=== PATIENT | female | born 1955 | race Caucasian/White ===

== ENCOUNTER → 2019-12-20 09:24 | Outpatient (CLI) | payer OTHER, SELFPAY ==
--- NOTE | ~2019-12-20 | MR_ITS ---
EXAMINATION: MR shoulder RT wo con DATE: 12/20/2019 10:34 INDICATION: Right shoulder pain. TECHNIQUE: Magnetic resonance imaging (MRI) of the right shoulder was performed without intravenous c ontrast. Sequences included axial PD-weighted FS FSE, coronal oblique PD-weighted FS FSE, coronal obl ique T2-weighted FS FSE, sagittal PD-weighted FS FSE, and sagittal T1-weighted SE. COMPARISON: None. FINDINGS: Coracoacromial arch: The acromion undersurface is curved in morphology (type II). Tiny subacromial spur at the acromial in sertion of the normal coracoacromial ligament. Mild acromioclavicular osteoarthritis. Rotator cuff: Mild supraspinatus and moderate infraspinatus tendinopathy. Small partial-thickness intrasubstance te ar at the superior facet footplate of the supraspinatus tendon which measures approximately 6 mm AP a nd involves <1/2 of the tendon thickness. The teres minor tendon is normal. Mild subscapularis tendin opathy without discrete tear. Normal rotator cuff muscle bulk and signal. Biceps tendon, glenoid labrum and glenohumeral cartilage: Long head of the biceps tendon is normal. There is a tear of the superior glenoid labrum. Partial-thi ckness tear without detachment of the biceps labral anchor as well as extending into the superior gle nohumeral ligament. Partial-thickness chondral ulceration and fissuring along the cephalad aspect of the glenoid and along the superior the superomedial aspect of the humeral head. There are tiny margin al osteophytes along the inferior humeral head and glenoid. Fluid: Small glenohumeral joint effusion with partial extension of a small amount of fluid into the long hea d biceps tendon sheath. No loose osteochondral bodies. Increased fluid signal in the subacromial/subd eltoid bursa consistent with minimal bursitis. Bones: There is cystic change and prominent marrow edema at the greater tuberosity likely related to rotator cuff disease. No fracture or pathologic marrow replacing process. IMPRESSION: 1. Mild to moderate rotator cuff tendinopathy with small mild partial-thickness intrasubstance tear a t the superior facet footplate of the supraspinatus tendon. 2. Tear at the superior glenoid labrum which extends to involve but not detached the biceps labral co mplex and superior glenohumeral ligament. 3. Mild glenohumeral and acromioclavicular osteoarthritis. Reviewed, dictated and finalized at location A. IMPRESSION: 1. Mild to moderate rotator cuff tendinopathy with small mild partial-thickness intrasubstance tear at the superior facet footplate of the supraspinatus tendo n. 2. Tear at the superior glenoid labrum which extends to involve but not detache d the biceps labral complex and superior glenohumeral ligament. 3. Mild glenohumeral and acromioclavicular osteoarthritis.
== END ==
PROVIDERS: PCP Family Medicine; Visit Provider Nurse Practitioner Family
DX: M19.011 Primary osteoarthritis, right shoulder (principal); S43.431A Superior glenoid labrum lesion of right shoulder, initial encounter; X58.XXXA Exposure to other specified factors, initial encounter
CPT/HCPCS: 73221

== ENCOUNTER → 2022-06-01 13:21 | Outpatient (CLI) | payer OTHER, SELFPAY ==
--- NOTE | ~2022-06-01 | CT_ITS ---
EXAMINATION: CT chest high resolution wo nc DATE: 06/01/2022 13:43 INDICATION: RA, chronic cough, shortness of breath TECHNIQUE: Computed tomography (CT) of the chest was performed without intravenous contrast. Addition al 3D reconstructions utilizing coronal maximum intensity projection (MIP) were performed. Automated exposure control and iterative reconstruction technique were employed. The dose-length product was 24 5.75 mGy-cm. COMPARISON: 04/16/2019 FINDINGS: Lungs are clear with no pulmonary nodules, pneumonia or other pulmonary infiltrates. No evident pulmo nary edema or other interstitial lung disease. No pleural effusion or pneumothorax. Heart size is nor mal. Atherosclerotic coronary artery calcifications. No pericardial effusion. Thoracic aorta is danelle l in caliber. No pathologically enlarged thoracic lymphadenopathy. And visualized upper abdomen is un remarkable. Mild thoracic dextrocurvature. Moderate thoracic and severe upper lumbar and lower cervic al spondylosis. IMPRESSION: 1. Atherosclerotic coronary artery calcifications. No other evident acute or chronic cardiopulmonary disease. Reviewed, dictated and finalized at location A. ICAL PROCESSING TECHNICIAN IMPRESSION: 1. Atherosclerotic coronary artery calcifications. No other evident acute or ch ronic cardiopulmonary disease.
== END ==
PROVIDERS: PCP Nurse Practitioner Family; Visit Provider Internal Medicine Critical Care Medicine
DX: R05.3 Chronic cough (principal); I25.10 Atherosclerotic heart disease of native coronary artery without angina pectoris
CPT/HCPCS: 71250

== ENCOUNTER 2022-06-06 07:09 | Outpatient (CLI) | payer OTHER, SELFPAY ==
--- NOTE | 2022-06-06 13:35 | WPDPFTINT ---
PFT Procedure Performed PFT Procedure Performed Spirometry with Pre/Post Bronchodilator Plethysmography (Lung Vol) Diffusing Cap (DLCO) Flow Vol Loop PFT Interpretation Lung volumes were measured with the body plethysmography method. Lung volumes are unremarkable. Spirometry showed normal expiratory flow rates and a normal FEV1 to FVC ratio 77%. Following administration of a bronchodilator there was no significant increase in expiratory flow rates. Lung diffusion capacity is within the normal range at 84% predicted. The flow-volume loop is unremarkable. Impression: Spirometry, lung volumes, and lung diffusion capacity within the normal range.
== END 2022-06-06 07:10 | disposition home or self-care (01) ==
LOC: ANHPFT 07:11
PROVIDERS: PCP Nurse Practitioner Family; Visit Provider Internal Medicine Critical Care Medicine
DX: R05.3 Chronic cough (principal)
CPT/HCPCS: 94060; 94726; 94729

== ENCOUNTER → 2022-09-21 10:07 | Outpatient (CLI) | payer OTHER, SELFPAY ==
--- NOTE | ~2022-09-21 | DEXA_ITS ---
Bone Density Report Name: SARAHI KHANNA Age: 66 Sex: Female Ethnicity: White Date of : 1955 Indication: postmenopausal; screening for osteoporosis; asthma or emphysema; hysterectomy; rheumatoid arthritis; Referring Provider: Marie Hackett Study: Bone densitometry was performed. Exam Date: September 21, 2022 Accession number: [id number] Bone Density: Region BMD T-score Z-score Classification AP Spine (L1, L2) 1.090 1.0 2.7 Normal Femoral Neck (Left) 0.726 -1.1 0.4 Osteopenia Total Hip (Left) 0.888 -0.4 0.8 Normal Femoral Neck (Right) 0.734 -1.0 0.5 Normal Total Hip (Right) 0.898 -0.4 0.9 Normal Total Hip Mean 0.893 -0.4 0.9 Normal World Health Organization criteria for BMD impression classify patients as: Normal (T-score at or above -1.0), Osteopenia (T-score between -1.0 and -2.5), or Osteoporosis (T-score at or below -2.5). 10-year Fracture Risk(1): Major Osteoporotic Fracture 11% Hip Fracture 0.9% Reported Risk Factors: [place] (), Neck BMD=0.726, BMI=25.6, rheumatoid arthritis (1) FRAX(R) Version 3.08. Fracture probability calculated for an untreated patient. Fracture probability may be lower if the patient has received treatment. Clinical Information Provided by Patient: Has rheumatoid arthritis Has the following medical conditions: Asthma or Emphysema, Hysterectomy Patient maximum height was 63.5 Menopause Age: 42 No regular weight bearing exercise Drinks caffeinated beverages Onset of menses at age 15 Number of children 1 Impression: The patient has low bone mass, based on the Left Femoral Neck T-score. The patient has an estimated ten-year risk of hip fracture of 0.9% and an estimated ten-year risk of major fracture of 11%, based on the WHO FRAX algorithm. Discussion: BONE DENSITY IS LOW AT ONE OR MORE SKELETAL SITES. This patient's lowest T-score is low at one or more skeletal sites. It meets the World Health Organization's (WHO) criteria for ?low bone mass? (T-score between -1.0 and -2.5). The patient's 10-year risk of fracture as calculated by FRAX is less than the threshold where pharmacological therapy is recommended by the National Osteoporosis Foundation (NOF). However, all treatment decisions require clinical judgment and consideration of individual patient factors, including patient preferences, comorbidities, previous drug use, risk factors not captured in the FRAX model (e.g., frailty, falls, vitamin D deficiency, increased bone turnover, interval significant decline in bone density) and possible under or overestimation of fracture risk by FRAX. The patient should follow a healthful lifestyle (good nutrition with adequate calcium and vitamin D, and appropriate weight-bearing exercise). Follow-Up: Consider repeating this study in 2 to 3 years to reassess t
--- NOTE | ~2022-09-21 | MM_ITS ---
EXAMINATION: MM screening jessica BI w alyssa HISTORY: Screening mammogram TECHNIQUE: Craniocaudal and mediolateral oblique 3-D tomosynthesis images were obtained and synthetic 2-D images were generated. CAD analysis was submitted and interpreted. COMPARISON: No prior mammogram is available for comparison at this institution. BREAST PARENCHYMAL COMPOSITION: The breasts are heterogeneously dense, which may obscure small masses . FINDINGS: RIGHT BREAST: No suspicious mass, calcification, or architectural distortion are identified to sugges t malignancy. LEFT BREAST: There is focal asymmetry in the middle third of the upper breast. IMPRESSION: 1. Left breast focal asymmetry. 2. Additional mammographic views and possible breast ultrasound are recommended. BI-RADS Category 0: Incomplete: Needs additional imaging evaluation. Reviewed, dictated and finalized at location A. IMPRESSION: 1. Left breast focal asymmetry. 2. Additional mammographic views and possible breast ultrasound are recommended . BI-RADS Category 0: Incomplete: Needs additional imaging evaluation.
== END ==
PROVIDERS: PCP Family Medicine; Visit Provider Nurse Practitioner Family
DX: Z12.31 Encounter for screening mammogram for malignant neoplasm of breast (principal); Z78.0 Asymptomatic menopausal state; R92.8 Other abnormal and inconclusive findings on diagnostic imaging of breast; M85.852 Other specified disorders of bone density and structure, left thigh
CPT/HCPCS: 77063; 77067; 77080

== ENCOUNTER → 2022-10-14 13:35 | Outpatient (CLI) | payer OTHER, SELFPAY ==
--- NOTE | ~2022-10-14 | MMUS_ITS ---
EXAMINATION: MM diagnostic jessica LT w alyssa, US breast LT complete HISTORY: Focal asymmetry is reported in middle third of upper left breast on 09/17/2022 screening mamm ogram TECHNIQUE: Additional 3-D Tomosynthesis images of the left breast were performed and synthetic 2-D im ages were generated. CAD analysis was submitted and interpreted. High resolution complete left breast ultrasound examination including all 4 quadrants and subareolar area was performed. COMPARISON: 09/18/2019 bilateral screening mammogram FINDINGS: MAMMOGRAPHIC FINDINGS: There is asymmetric multinodular prominence of the fibroglandular stroma in the upper left breast wit h occasional benign appearing calcifications. One or more masses is suspected but obscured by the fib roglandular stroma, limiting assessment. Complete left breast ultrasound examination was performed. ULTRASOUND: 12-1:00 4 cm from nipple: There is a focal ill-defined approximately 3 x 5 x 5.6 mm area of hypoechog enicity with posterior shadowing. Ultrasound-guided biopsy is recommended 12-1:00 4 cm from nipple: There is approximately 3 x 3.8 mm hypoechoic lesion without internal vascul arity or posterior shadowing. 2:00 6 cm from nipple: There is an irregular area of diminished echogenicity with posterior shadowing , measuring up to approximately 1.7 x 2.3 cm. Differential diagnosis includes scarring from reported prior biopsy versus malignancy. Consider ultrasound-guided biopsy. 3:00 4 cm from nipple: Circumscribed approximately 2.5 mm hypoechoic lesion without internal vascular ity or posterior shadowing, likely benign IMPRESSION: 1. There are 2 ill-defined areas of diminished echogenicity with posterior shadowing, at 12-1:00 4 cm from the nipple and 2:00 6 cm from nipple 2. Consider ultrasound-guided biopsy of the left breast 12:00-1:00 4 cm from nipple and 2:00 6 cm fro m nipple areas of hypoechogenicity BI-RADS category 4, suspicious findings. Dr. Silva telephoned the report and ultrasound-guided biopsy recommendations on 10/14/2022 at 1620 hour s to [facility] voicemail. Reviewed, dictated and finalized at location A. E IMPRESSION: 1. There are 2 ill-defined areas of diminished echogenicity with posterior shad owing, at 12-1:00 4 cm from the nipple and 2:00 6 cm from nipple 2. Consider ultrasound-guided biopsy of the left breast 12:00-1:00 4 cm from ni pple and 2:00 6 cm from nipple areas of hypoechogenicity BI-RADS category 4, suspicious findings. Dr. Silva telephoned the report and ultrasound-guided biopsy recommendations on 10/14/2022 at 1620 hours to [facility] voicemail.
== END ==
PROVIDERS: PCP Family Medicine; Visit Provider Family Medicine
DX: R92.8 Other abnormal and inconclusive findings on diagnostic imaging of breast (principal)
CPT/HCPCS: 76641; 77061; 77065; G0279

== ENCOUNTER 2022-10-25 15:51 | Outpatient (CLI) | payer OTHER, SELFPAY ==
[2022-10-25 18:49] LABS: Alanine Aminotransferase 23 U/L (6-35); Albumin Level 4.2 g/dL (3.5-5.1); Alkaline Phosphatase 104 U/L (38-126); Anion Gap 6 mmol/L (8-16); Aspartate Amino Transferase 42 U/L (14-36); Bilirubin,Total 0.3 mg/dL (0.2-1.3); Blood Urea Nitrogen 18 mg/dL (7-17); Calcium 8.8 mg/dL (8.4-10.2); Carbon Dioxide 30 mmol/L (22-30); Chloride 100 mmol/L (98-107); Estimated Glomerular Filt Rate > 60; Glucose 87 mg/dL (65-110); Potassium 3.8 mmol/L (3.4-5.0); Sodium 136 mmol/L (137-145)
== END 2022-10-25 15:52 | disposition home or self-care (01) ==
LOC: ANHGOSHLAB 15:53
PROVIDERS: PCP Family Medicine; Visit Provider Family Medicine
DX: F32.9 Major depressive disorder, single episode, unspecified (principal); E78.5 Hyperlipidemia, unspecified
CPT/HCPCS: 36415; 80053

== ENCOUNTER 2022-11-03 08:38 | Outpatient (CLI) | payer OTHER, SELFPAY ==
--- NOTE | ~2022-11-03 | US_ITS ---
EXAMINATION: Consultation US INDICATION: Patient presents for left breast biopsy TECHNIQUE: Limited left breast ultrasound is performed. COMPARISON: 10/14/2022 FINDINGS: No specific ultrasound targeted is identified for biopsy. This was discussed with the ale de la cruz and a six-month follow-up was agreed upon. IMPRESSION: 1. No specific sonographic target identified for biopsy. Recommend follow-up left diagnostic mammogra m in six months with possible ultrasound. Reviewed, dictated and finalized at location A. IMPRESSION: 1. No specific sonographic target identified for biopsy. Recommend follow-up le ft diagnostic mammogram in six months with possible ultrasound.
== END 2022-11-03 08:39 | disposition home or self-care (01) ==
PROVIDERS: PCP Family Medicine; Visit Provider Family Medicine
DX: N63.20 Unspecified lump in the left breast, unspecified quadrant (principal)
CPT/HCPCS: 99199

== ENCOUNTER 2023-04-27 10:08 | Outpatient (CLI) | payer OTHER, SELFPAY ==
[2023-04-27 19:15] LABS: Basophils Absolute Auto 0.1 K/mm3 (0.0-0.1); Basophils Percent Auto 0.7 % (0.2-1.2); Eosinophils Absolute Auto 0.2 K/mm3 (0-0.3); Eosinophils Percent Auto 2.3 % (0-4.4); Hematocrit 39.8 % (37.0-47.0); Hemoglobin 12.4 g/dL (12.0-15.0); Immature Granulocyte Absolute 0.04 K/mm3 (0.00-0.031); Immature Granulocyte Percent A 0.6 % (0-0.5); Lymphocytes Percent Auto 24.8 % (18.3-44.2); Mean Corpuscular HGB Conc 31.2 g/dl (32-36); Mean Corpuscular Hemoglobin 28.7 pg (26-34); Mean Corpuscular Volume 92.1 fl (80-100); Mean Platelet Volume 9.9 fl (7.4-10.4); Monocytes Absolute Auto 0.5 K/mm3 (0.1-0.6); Monocytes Percent Auto 7.2 % (2.6-8.5); Neutrophils Absolute Auto 4.4 K/mm3 (1.3-6.7); Neutrophils Percent Auto 64.4 % (45.5-73.1); Platelet Count Result 289 k/mm3 (150-375); Red Blood Count 4.32 M/mm3 (4.2-5.4); Red Cell Distribution Width 13.1 % (11.5-14.5); White Blood Count 6.9 K/mm3 (4.5-10.0)
[2023-04-27 19:29] LABS: LDL Cholesterol Direct 110 mg/dL
[2023-04-27 19:38] LABS: Vitamin D 25 Hydroxy 37.3 ng/mL
[2023-04-27 19:42] LABS: Alanine Aminotransferase 22 U/L (6-35); Albumin Level 4.1 g/dL (3.5-5.1); Alkaline Phosphatase 97 U/L (38-126); Anion Gap 8 mmol/L (8-16); Aspartate Amino Transferase 49 U/L (14-36); Bilirubin,Total 0.6 mg/dL (0.2-1.3); Blood Urea Nitrogen 17 mg/dL (7-17); Calcium 9.2 mg/dL (8.4-10.2); Carbon Dioxide 26 mmol/L (22-30); Chloride 102 mmol/L (98-107); Cholesterol 225 mg/dL (0-200); Estimated Glomerular Filt Rate > 60; Glucose 87 mg/dL (65-110); HDL Direct 68 mg/dL; Potassium 4.2 mmol/L (3.4-5.0); Sodium 136 mmol/L (137-145); Triglycerides 77 mg/dL (<150)
== END 2023-04-27 10:09 | disposition home or self-care (01) ==
PROVIDERS: PCP Family Medicine; Visit Provider Family Medicine
DX: F32.9 Major depressive disorder, single episode, unspecified (principal); F41.9 Anxiety disorder, unspecified; E53.8 Deficiency of other specified B group vitamins; Z00.00 Encounter for general adult medical examination without abnormal findings; E55.9 Vitamin D deficiency, unspecified; Z79.899 Other long term (current) drug therapy; E78.5 Hyperlipidemia, unspecified
CPT/HCPCS: 36415; 80053; 80061; 82306; 82607; 84443; 85025

== ENCOUNTER 2023-07-21 12:33 | Outpatient (CLI) | payer OTHER, SELFPAY ==
--- NOTE | ~2023-07-21 | XR_ITS ---
XR cervical spine 4-5V DATE: 07/21/2023 13:03 INDICATION: Neck pain. Low back pain. TECHNIQUE: AP, lateral, lateral, bilateral oblique views COMPARISON: None FINDINGS: C1 and C2 are normally aligned and the odontoid process is intact. There is mild levoscolio sis of the cervical spine. No fracture or dislocation or locked facet or prevertebral soft tissue swelling is detected. There is moderately severe degenerative disease at C3-4 with minimal retrolisthesis. Mild degenerative disc disease at C4-5. Minimal anterolisthesis at C4-5. Moderately severe degenerative disc disease and posterior spurring at C5-6. Moderate degenerative disease at C6-7 with posterior spurring. Uncovertebral joint spurring at C5-C6 and C7 encroaches upon the anterior aspect of the C6 and C7 felipe ral foramina bilaterally. IMPRESSION: Moderately severe cervical spondylosis Reviewed, dictated and finalized at location B.
--- NOTE | ~2023-07-21 | XR_ITS ---
Left Knee Technique: AP and lateral views were obtained. Clinical History: Pain Findings: No fracture or dislocation is seen. Osseous alignment is anatomic. Joint spaces are preserv ed without degenerative or erosive change. Soft tissues are unremarkable. No joint effusion is seen. Impression: Unremarkable left knee radiographs. Reviewed, dictated and finalized at location . Impression: Unremarkable left knee radiographs.
--- NOTE | ~2023-07-21 | XR_ITS ---
AP and lateral views of the bilateral hips Clinical history: Pain Findings: No acute fracture or dislocation is seen. Osseous alignment is anatomic. Bilateral hip and SI joint spaces are preserved. Soft tissues are unremarkable. Impression: No significant abnormality is seen. Reviewed, dictated and finalized at location . Impression: No significant abnormality is seen.
--- NOTE | ~2023-07-21 | XR_ITS ---
XR lumbar spine min 4V DATE: 07/21/2023 13:03 INDICATION: Low back pain TECHNIQUE: AP, lateral , bilateral oblique views, coned lateral lumbosacral view COMPARISON: 11/10/2018 MRI lumbar spine 06/18/2013 lumbar spine FINDINGS: Status post posterior and interbody surgical spinal fusion at L4-S1. There is minimal lumbar levoscoliosis. There is diffuse osteopenia. There is severe degenerative disc disease at L1-2 and L2-3, with associated mild L1-2 retrolisthesis. The sacroiliac joints are intact. IMPRESSION: Status post posterior and interbody surgical spinal fusion at L4-5 Osteopenia Severe degenerative disc disease at L1-2 and L2=3 Reviewed, dictated and finalized at location B.
--- NOTE | ~2023-07-21 | XR_ITS ---
Right Knee Technique: AP and lateral views were obtained. Clinical History: Pain Findings: No fracture or dislocation is seen. Osseous alignment is anatomic. Joint spaces are preserv ed without degenerative or erosive change. Soft tissues are unremarkable. No joint effusion is seen. Impression: Unremarkable right knee radiographs. Reviewed, dictated and finalized at location . Impression: Unremarkable right knee radiographs.
== END 2023-07-21 12:34 ==
LOC: MICIMG 12:35
PROVIDERS: PCP Family Medicine; Visit Provider Internal Medicine Rheumatology
DX: M54.2 Cervicalgia (principal); M51.36 Other intervertebral disc degeneration, lumbar region; M85.88 Other specified disorders of bone density and structure, other site; Z98.1 Arthrodesis status; M47.892 Other spondylosis, cervical region
CPT/HCPCS: 72050; 72110; 73521; 73560

== ENCOUNTER 2023-08-03 08:26 | Outpatient (CLI) | payer OTHER, SELFPAY ==
--- NOTE | ~2023-08-03 | MR_ITS ---
MRI of the right hip Clinical history: Pain Technique: Coronal T1-weighted, T2-weighted, and proton-density fat-sat images, and axial T1-weighted and proton-density fat-sat images were acquired through the pelvis. Coronal T2-weighted images and c oronal, axial, and sagittal proton-density fat-sat images were acquired through the right hip. Findings: There is no fracture or avascular necrosis of either hip. Bone marrow signals the proximal femora and pelvic bones are unremarkable. Bilateral hip joint spaces are preserved, with probable mil d to moderate diffuse chondromalacia the right hip joint. No significant joint effusion seen. No defi nite right acetabular labral tear identified. Visualized musculature about the pelvis and right hip is unremarkable. No muscle atrophy or edema see n. Visualized tendons are intact. No soft tissue mass or fluid collection. 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 Reviewed, dictated and finalized at location .
== END 2023-08-03 08:27 ==
PROVIDERS: PCP Nurse Practitioner Family; Visit Provider Nurse Practitioner
DX: M25.551 Pain in right hip (principal)
CPT/HCPCS: 73721

== ENCOUNTER 2023-09-29 07:04 | Outpatient (CLI) | payer OTHER, SELFPAY ==
--- NOTE | ~2023-09-29 | MR_ITS ---
EXAMINATION: MR lower leg RT wo con DATE: 09/29/2023 08:16 INDICATION: Right lower leg pain. TECHNIQUE: Magnetic resonance imaging (MRI) of the right lower leg was performed without intravenous contrast. COMPARISON: Right knee radiographs 07/21/2023 FINDINGS: Bone alignment is normal. No fracture. There is periosteal edema of anterior aspect of tibi al diaphysis. No marrow or cortical signal abnormality. There is mild right knee osteoarthritis. Ther e is a small right knee joint effusion. Varicose veins are noted. The musculature is normal. IMPRESSION: 1. Mild medial tibial stress injury ([place] grade 1). 2. Mild right knee osteoarthritis. Reviewed, dictated and finalized at location A.
--- NOTE | ~2023-09-29 | MMUS_ITS ---
EXAMINATION: MM diagnostic jessica BI w alyssa, US breast LT complete HISTORY: Follow-up TECHNIQUE: Additional 3-D tomosynthesis images of the breasts were performed and synthetic 2-D images were generated. CAD analysis was submitted and interpreted. High resolution complete left breast ult rasound was performed. COMPARISON: Comparison to multiple prior studies sequentially, with oldest reviewed study dated 09/21. BREAST PARENCHYMAL COMPOSITION: Dense: The breasts are heterogeneously dense, which may obscure small masses FINDINGS: MAMMOGRAPHIC FINDINGS: The breasts are stable. No new masses, calcifications or architectural distortion are identified in e ither breast to suggest malignancy. ULTRASOUND: Complete US of all 4 quadrants of the left breast and retroareolar region was reviewed. At 1:00, 3 cm from the nipple there is a small 4 mm intramammary lymph node. At 3:00, 4 cm from the nipple there i s a 2 mm cyst. No suspicious masses in the left breast to suggest malignancy. IMPRESSION: 1. No evidence for malignancy in the either breast. 2. Routine yearly screening mammogram and regular clinical breast examination are recommended. BI-RADS Category 2: Benign finding(s). Reviewed, dictated and finalized at location B. IMPRESSION: 1. No evidence for malignancy in the either breast. 2. Routine yearly screening mammogram and regular clinical breast examination a re recommended. BI-RADS Category 2: Benign finding(s).
--- NOTE | ~2023-09-29 | MR_ITS ---
MRI of the lumbar spine Clinical History: Back pain Technique: Axial T2-weighted images, and sagittal T1-weighted, T2-weighted, and STIR images were acqu ired. COMPARISON: 11/28/2018 Findings: There is stable posterior fusion hardware from L4 through S1, with bilateral rods and trans pedicular screws present. Posterior decompression of L5 and S1 again present. There is interbody fusi on across the L4-L5 and L5-S1 disc spaces, unchanged. There is 5 mm retrolisthesis of L2 over L3, wit h severe degenerative disc narrowing at L2-L3. There is probable reactive marrow edema in the L3 vert ebral body. At L1-L2, there is minimal disc bulge with moderate to severe facet arthropathy. No central canal joseph nosis. There is moderate bilateral neural foraminal narrowing. At L2-L3, there is disc bulge and severe facet arthropathy, resulting in severe spinal canal stenosis /thecal sac compression. There is severe bilateral neural foraminal, as, right worse than left. At L3-L4, there is advanced degenerative disc narrowing with diffuse disc bulge and advanced facet ar thropathy, with severe spinal canal stenosis/thecal sac compression. There is severe bilateral neural foraminal compromise. At L4-L5 and L5-S1, there is no spinal canal stenosis or definite neural foraminal narrowing. Paravertebral soft tissues are unremarkable aside from expected postoperative change. Impression: Severe degenerative spondylosis at L2-L3 at L3-L4, as detailed above. Mild to moderate degenerative spondylosis at L1-L2. 5 mm retrolisthesis of L2 over L3 with severe degenerative disc change at this level. Stable posterior and interbody fusion from L4 through S1. Reviewed, dictated and finalized at [facility]. Impression: Severe degenerative spondylosis at L2-L3 at L3-L4, as detailed above. Mild to moderate degenerative spondylosis at L1-L2. 5 mm retrolisthesis of L2 over L3 with severe degenerative disc change at this level. Stable posterior and interbody fusion from L4 through S1.
== END 2023-09-29 07:05 ==
PROVIDERS: PCP Nurse Practitioner Family; Visit Provider Nurse Practitioner Family
DX: G89.29 Other chronic pain (principal); N63.21 Unspecified lump in the left breast, upper outer quadrant; M79.604 Pain in right leg; M54.50 Low back pain, unspecified; M43.06 Spondylolysis, lumbar region; Z98.1 Arthrodesis status
CPT/HCPCS: 72148; 73718; 76641; 77062; 77066; G0279

== ENCOUNTER 2023-09-29 07:06 | Outpatient (CLI) | payer OTHER, SELFPAY ==
--- NOTE | ~2023-09-29 | MR_ITS ---
MRI of the cervical spine Clinical History: Neck pain Technique: Axial T2-weighted and gradient images, and sagittal T1-weighted, T2-weighted, and STIR rashid ges were acquired. Findings: There is straightening of the normal cervical lordosis. No fracture or subluxation evident. No suspicious bone marrow signal abnormality seen. At C2-C3, there is minimal degenerative disc change. No significant disc bulge or herniation. There i s mild right facet arthropathy. No juanpablo canal stenosis, cord compression, or neural foraminal narrow ing evident. At C3-C4, there is moderate to severe degenerative disc narrowing. There is mild disc osteophyte comp shanti with mild canal stenosis but no juanpablo cord compression. There is bilateral neural foraminal narro wing with bilateral facet arthropathy, right worse than left. At C4-C5, there is moderate degenerative disc narrowing. There is mild disc osteophyte complex, with mild to moderate canal stenosis and mild flattening the ventral cord. There is bilateral neural negra inal narrowing with bilateral facet arthropathy, right worse than left. At C5-C6, there is degenerative disc narrowing with mild disc osteophyte complex. There is moderate c anal stenosis and mild cord compression. There is bilateral neural foraminal narrowing, right worse t colon left. At C6-C7, there is degenerative disc narrowing with disc osteophyte complex, resulting in moderate ca nal stenosis and mild probable cord compression. There is bilateral neural foraminal narrowing. No abnormal signal seen in the spinal cord. Paravertebral soft tissues are unremarkable. Impression: Advanced degenerative spondylosis throughout the cervical spine, as detailed above. Reviewed, dictated and finalized at location M. Impression: Advanced degenerative spondylosis throughout the cervical spine, as detailed ab izabela.
== END 2023-09-29 07:07 ==
PROVIDERS: PCP Nurse Practitioner Family; Visit Provider Internal Medicine Rheumatology
DX: M54.2 Cervicalgia (principal); M43.02 Spondylolysis, cervical region
CPT/HCPCS: 72141

== ENCOUNTER 2023-12-04 08:36 | Outpatient (CLI) | payer OTHER, SELFPAY ==
[2023-12-04 11:38] LABS: Basophils Absolute Auto 0.1 K/mm3 (0.0-0.1); Basophils Percent Auto 1.1 % (0.2-1.2); Eosinophils Absolute Auto 0.1 K/mm3 (0-0.3); Eosinophils Percent Auto 2.4 % (0-4.4); Hematocrit 39.3 % (37.0-47.0); Hemoglobin 12.1 g/dL (12.0-15.0); Immature Granulocyte Absolute 0.03 K/mm3 (0.00-0.031); Immature Granulocyte Percent A 0.6 % (0-0.5); Lymphocytes Percent Auto 27.9 % (18.3-44.2); Mean Corpuscular HGB Conc 30.8 g/dl (32-36); Mean Corpuscular Hemoglobin 29.5 pg (26-34); Mean Corpuscular Volume 95.9 fl (80-100); Mean Platelet Volume 9.9 fl (7.4-10.4); Monocytes Absolute Auto 0.7 K/mm3 (0.1-0.6); Monocytes Percent Auto 12.3 % (2.6-8.5); Neutrophils Percent Auto 55.7 % (45.5-73.1); Platelet Count Result 249 k/mm3 (150-375); Red Cell Distribution Width 13.2 % (11.5-14.5); White Blood Count 5.4 K/mm3 (4.5-10.0)
[2023-12-04 11:59] LABS: Alanine Aminotransferase 24 U/L (6-35); Albumin Level 4.1 g/dL (3.5-5.1); Alkaline Phosphatase 93 U/L (38-126); Anion Gap 8 mmol/L (4-12); Aspartate Amino Transferase 41 U/L (14-36); Bilirubin,Total 0.4 mg/dL (0.2-1.3); Blood Urea Nitrogen 20 mg/dL (7-17); Calcium 8.6 mg/dL (8.4-10.2); Carbon Dioxide 29 mmol/L (22-30); Chloride 101 mmol/L (98-107); Cholesterol 208 mg/dL (0-200); Estimated Glomerular Filt Rate > 60; Glucose 74 mg/dL (65-110); HDL Direct 85 mg/dL; Sodium 138 mmol/L (137-145); Triglycerides 52 mg/dL (<150)
[2023-12-04 12:10] LABS: LDL Cholesterol Direct 90 mg/dL
[2023-12-04 13:32] LABS: Hemoglobin A1C 5.8 % (<5.7)
== END 2023-12-04 08:37 | disposition home or self-care (01) ==
LOC: ANHGOSHLAB 08:38
PROVIDERS: PCP Nurse Practitioner Family; Visit Provider Nurse Practitioner Family
DX: K58.0 Irritable bowel syndrome with diarrhea (principal); J45.20 Mild intermittent asthma, uncomplicated; F41.9 Anxiety disorder, unspecified; R73.03 Prediabetes; E78.5 Hyperlipidemia, unspecified
CPT/HCPCS: 36415; 80053; 80061; 83036; 85025

== ENCOUNTER 2024-01-02 09:36 | Day surgery (SDC) | payer OTHER, SELFPAY ==
[2023-12-20 11:36] VITALS: BMI 23.3
--- NOTE | ~2024-01-02 | XR_ITS ---
EXAMINATION: XR fluoroscopy no charge DATE: 01/02/2024 11:30 INDICATION: Bilateral sacroiliitis. TECHNIQUE: 16 intraoperative fluoroscopic views of the pelvis were obtained. I was not present. The f luoroscopy exposure time was 16 seconds. COMPARISON: None. FINDINGS: There are changes of anterior and posterior fusion procedures in lumbosacral spine. Images demonstrate needle injections of the bilateral sacroiliac joints. IMPRESSION: 1. Injections of the bilateral sacroiliac joints. Reviewed, dictated and finalized at location A.
--- NOTE | 2024-01-02 09:23 | WPDHPUPDATE1 ---
History and Physical Update Update Date/Time: 01/02/24 09:23 History and Physical has been reviewed, including an updated exam of the patient. There are NO changes in the patient's condition. Risks, benefits, and alternatives have been discussed and questions answered. Patient agrees to proceed with procedure.
--- NOTE | 2024-01-02 09:27 | W.PM.PROC2 ---
Procedure Note - Detailed Date of Procedure 01/02/24 Pre-op Diagnosis Sacroiliitis Post-op Diagnosis Same Procedure Performed bilateral Sacroiliac Joint Steroid Injection under Fluoroscopic Guidance and with Contrast Control. Surgeon Jesus Rubio MD Anesthesia Local Description of Procedure INFORMED CONSENT: Risks, benefits and alternatives to the procedure were discussed in detail with the patient who expressed explicit understanding and consent to proceed. Patient was informed verbally and in written form regarding the risks associated with the procedure including the low risk of serious infection, bleeding/bruising, allergic reaction, nerve or organ injury, paralysis, procedural site pain or discomfort, worsening pain and/or mobility, failure to treat and/or disfigurement. The patient expressed explicit understanding and consent to proceed. All materials required for the procedure were available prior to procedure start. Site and side were marked prior to procedure and confirmed in the presence of the patient. PROCEDURE IN DETAIL: The patient was brought to the procedural suite and placed in the prone position. Patient was made comfortable with use of pillows under the head/chest, hips and ankles. Skin overlying the injection site on the affected side(s) was prepared broadly with ChloraPrep applicator and draped in a sterile manner. Aseptic technique was used throughout. The right SI joint was identified in the AP view and contralateral oblique angulation with caudal tilt was utilized to optimize visualization of the inferior and medial joint line representing the posterior portion of the joint. Local anesthesia was established by infiltration with approximately 5 mL of 2% lidocaine via a 1-1/2 inch 27-gauge needle. A 22-gauge 3.5 inch Quincke spinal needle was advanced until the needle entered the inferior third of the joint space approximately 1cm cephalad from its most inferior point. In the AP view, 0.5 mL of Omnipaque 300 contrast medium was injected after negative aspiration for CSF, blood or other bodily fluid, showing appropriate intra-articular spread of contrast without evidence of intravascular, perineural or intrathecal placement. A 1.5 mL solution containing 3 mg of betamethasone in 2.0% PF lidocaine was injected after repeat negative aspiration. Appropriate spread of the injectate was confirmed with washout of previous injected contrast. No parasthesias were elicited. Needle was removed completely intact without difficulty. [The same exact procedure was repeated for all remaining levels on the contralateral side, left SI joint, modified as necessary to accommodate for the new target location with identical findings/results and no evidence of complication.] Images were saved and documented in the patient chart. Patient's skin was cleansed and sterile bandage applied. The patient tolerated the procedure well. The patient was transported to the recovery area in stable condition where they were observed for an appropriate amount of time prior to discharge, without evidence of complication. The patient was instructed to avoid excessive activity for the next 48 hours, including climbing and frequent use of stairs. Showers only for 48 hours. They were instructed not to drive or operate heavy machinery for 24 hours. They are to monitor for severe headaches, fevers, chills, night sweats, erythema/swelling at the site or any other signs of infection, bleeding/bruising, bowel or bladder changes as well as new pain, weakness or numbness in the upper or lower extremity. Should they notice these changes, they are instructed to call our office immediately or report directly to the nearest Emergency Department if no answer or if after posted office hours. COMPLICATIONS: None COMMENTS: None CONTRAST WASTED: 29mL Omnipaque 300. Complications No immediate complications Condition Stable Disposition Same day [facility] - Charge Forward: Godfrey
[2024-01-02 10:29] VITALS: BP 107/95; PULSE 75; RESP 16; TEMP 36.9; O2SAT 100; BMI 23.5
[2024-01-02 11:20] VITALS: BP 158/58; PULSE 64; RESP 18; O2SAT 98
[2024-01-02 11:24] VITALS: BP 139/77; PULSE 64; RESP 14; O2SAT 98
[2024-01-02] MEDS: BETAMETHASONE SODIUM PHOSPHATE PF INJ 6 MG/ML VIAL INFILTRATE (11:24)
[2024-01-02] MEDS: LIDOCAINE HCL 2% PF INJ 5 ML VIAL 2 ML INFILTRATE (11:24)
[2024-01-02] MEDS: LIDOCAINE HCL 1% PF INJ 5 ML VIAL 3 ML INFILTRATE (11:25)
[2024-01-02 11:31] VITALS: BP 134/97; PULSE 79; RESP 18; O2SAT 100
== END 2024-01-02 11:46 | disposition home or self-care (01) ==
PROVIDERS: PCP Nurse Practitioner Family; Visit Provider Anesthesiology Pain Medicine
PROC: (CPT 27096; principal; 2024-01-02 11:00)
DX: M46.1 Sacroiliitis, not elsewhere classified (principal)
CPT/HCPCS: 27096 ×2; 99199; G0260

== ENCOUNTER 2024-02-13 06:01 | Day surgery (SDC) | payer OTHER, SELFPAY ==
[2024-02-09 09:52] VITALS: BMI 24.1
--- NOTE | ~2024-02-13 | XR_ITS ---
EXAMINATION: XR fluoroscopy no charge DATE: 02/13/2024 08:27 INDICATION: Lumbosacral radiculopathy. TECHNIQUE: 37 intraoperative fluoroscopic views of the lumbar spine and sacrum were obtained. I was n ot present. Fluoroscopy exposure time was 15 seconds. COMPARISON: None. FINDINGS: There are changes of anterior and posterior fusion procedures in lumbosacral spine. There i s a needle in the sacral epidural space. IMPRESSION: 1. Epidural injection in the sacrum. Reviewed, dictated and finalized at location A.
--- NOTE | 2024-02-13 06:00 | WPDHPUPDATE1 ---
History and Physical Update Update Date/Time: 02/13/24 06:00 History and Physical has been reviewed, including an updated exam of the patient. There are NO changes in the patient's condition. Risks, benefits, and alternatives have been discussed and questions answered. Patient agrees to proceed with procedure.
--- NOTE | 2024-02-13 06:02 | W.PM.PROC2 ---
Procedure Note - Detailed Date of Procedure 02/13/24 Pre-op Diagnosis Lumbosacral Radiculopathy Post-op Diagnosis Same Procedure Performed midline Caudal Epidural Steroid Injection at the Sacral Hiatus under Fluoroscopic Guidance and with Contrast Control Surgeon Jesus Rubio MD Anesthesia Local Description of Procedure INFORMED CONSENT: Risks, benefits and alternatives to the procedure were discussed in detail with the patient who expressed explicit understanding and consent to proceed. Patient was informed verbally and in written form regarding the risks associated with the procedure including the low risk of serious infection, bleeding/bruising, allergic reaction, nerve or organ injury, paralysis, procedural site pain or discomfort, worsening pain and/or mobility, failure to treat and/or disfigurement. The patient expressed explicit understanding and consent to proceed. All materials required for the procedure were available prior to procedure start. Site and side was marked prior to procedure and confirmed in the presence of the patient. PROCEDURE IN DETAIL: The patient was brought to the procedural suite and placed in the prone position. Patient was made comfortable with use of pillows under the head/chest, hips and ankles. Skin overlying the injection site was prepared broadly with ChloraPrep applicator and draped in a sterile manner. Aseptic technique was employed throughout. The body of the sacrum was visualized in the AP view. Slight caudad tilt was utilized to optimize visualization of sacral hiatus proximal to the coccyx. Local anesthesia was established by infiltration with approximately 5 mL of 2% lidocaine via a 1-1/2 inch 27-gauge needle. A [22]-gauge 3.5 inch Mally (pencil-point) spinal needle was advanced intermittently until the sacroccygeal ligament was penetrated. Lateral view was used to confirm the appropriate positioning of the needle tip within the posterior sacral epidural space. In the AP view, [2.0] mL of [IsoVue 300M] contrast medium was injected after negative aspiration for CSF, blood or other bodily fluid, showing appropriate epidural spread of contrast without evidence of intravascular or intrathecal placement. A [10] mL solution containing [10] mg of [dexamethasone]in sterile [0.5% PF lidocaine] was injected after negative repeat aspiration. Appropriate spread of the injectate was confirmed with washout of previously injected contrast. No parasthesias were elicited. Needle was removed completely intact without difficulty. Images were saved and documented in the patient chart. Patient's skin was cleaned and sterile bandage applied. The patient tolerated the procedure well. The patient was transported to the recovery area in stable condition where they were observed for an appropriate amount of time prior to discharge, without evidence of complication. The patient was instructed to avoid excessive activity for the next 48 hours, including climbing and frequent use of stairs. Showers only for 48 hours. They were instructed not to drive or operate heavy machinery for 24 hours. They are to monitor for severe headaches, fevers, chills, night sweats, erythema/swelling at the site or any other signs of infection, bleeding/bruising, bowel or bladder changes as well as new pain, weakness or numbness in the upper or lower extremity. Should they notice these changes, they are instructed to call our office immediately or report directly to the nearest Emergency Department if no answer or if after posted office hours. EXPOSURE: Time: []sTotal Dose: []mGy CONTRAST WASTED: [13]mL[Isovue 300M]. Complications None [facility]illing [facility] - Charge Forward: Surgery Billing
--- NOTE | 2024-02-13 06:15 | W.PM.PROC2 ---
Procedure Note - Detailed Date of Procedure 02/13/24 Pre-op Diagnosis Lumbosacral Radiculopathy, Post-Laminectomy Syndrome Post-op Diagnosis Same Procedure Performed Midline Caudal Epidural Steroid Injection at the Sacral Hiatus under Fluoroscopic Guidance and with Contrast Control Surgeon Jesus Rubio MD Montessori Program Director None. Anesthesia Local Description of Procedure INFORMED CONSENT: Risks, benefits and alternatives to the procedure were discussed in detail with the patient who expressed explicit understanding and consent to proceed. Patient was informed verbally and in written form regarding the risks associated with the procedure including the low risk of serious infection, bleeding/bruising, allergic reaction, nerve or organ injury, paralysis, procedural site pain or discomfort, worsening pain and/or mobility, failure to treat pain and/or disfigurement. The patient expressed explicit understanding and consent to proceed. All materials required for the procedure were available prior to procedure start. Site and side was marked prior to procedure and confirmed in the presence of the patient. PROCEDURE IN DETAIL: The patient was brought to the procedural suite and placed in the prone position. Patient was made comfortable with use of pillows under the head/chest, hips and ankles. Skin overlying the injection site was prepared broadly with tinted ChloraPrep applicator and draped in a sterile manner. Aseptic technique was employed throughout. The body of the sacrum was visualized in the AP view. Slight caudad tilt was utilized to optimize visualization of sacral hiatus proximal to the coccyx. Local anesthesia was established by infiltration with no more than 5 mL of 0.5% PF lidocaine via a 1-1/2 inch 27-gauge needle. A 20-gauge 4.0 inch Tuohy epidural needle was advanced intermittently and carefully directed toward the side of greatest pain/symptoms until the sacrococcygeal ligament was penetrated. Lateral view was used to confirm the appropriate positioning of the needle tip within the posterior sacral epidural space. In the AP view, 2.0 mL of Omnipaque 300 contrast medium was injected after negative aspiration for CSF, blood or other bodily fluid, showing appropriate epidural spread of contrast without evidence of intravascular or intrathecal placement. A 10 mL solution containing 6 mg of betamethasone in 0.5% PF lidocaine was injected after negative repeat aspiration. Appropriate spread of the injectate was confirmed with washout of previously injected contrast. No paresthesias were elicited. Needle was removed completely intact without difficulty. Images were saved and documented in the patient chart. Patient's skin was cleaned and sterile bandage applied. The patient tolerated the procedure well. The patient was transported to the recovery area in stable condition where they were observed for an appropriate amount of time prior to discharge, without evidence of complication. The patient was instructed to avoid excessive activity for the next 48 hours, including climbing and frequent use of stairs. Showers only for 48 hours. They were instructed not to drive or operate heavy machinery for 24 hours. They are to monitor for severe headaches, fevers, chills, night sweats, erythema/swelling at the site or any other signs of infection, bleeding/bruising, bowel or bladder changes as well as new pain, weakness or numbness in the upper or lower extremity. Should they notice these changes, they are instructed to call our office immediately or report directly to the nearest Emergency Department if no answer or if after posted office hours. COMPLICATIONS: None. COMMENTS: None. CONTRAST WASTED: 28mL of Omnipaque 300. Complications No immediate complications Condition Stable Disposition Same day [facility] - Charge Forward: Surgery Billing
[2024-02-13 07:18] VITALS: BP 132/88; PULSE 76; RESP 16; TEMP 36.9; O2SAT 100
[2024-02-13 08:15] VITALS: BP 140/76; PULSE 73; RESP 16; O2SAT 100
[2024-02-13 08:20] VITALS: BP 138/83; PULSE 76; RESP 14; O2SAT 100
[2024-02-13] MEDS: LIDOCAINE HCL 1% PF INJ 5 ML VIAL 4 ML INFILTRATE (08:23)
[2024-02-13] MEDS: BETAMETHASONE SODIUM PHOSPHATE PF INJ 6 MG/ML VIAL INFILTRATE (08:23)
[2024-02-13] MEDS: LIDOCAINE HCL 1% PF INJ 5 ML VIAL 3.25 ML INFILTRATE (08:23)
[2024-02-13 08:27] VITALS: BP 144/90; PULSE 75; RESP 16; O2SAT 100
== END 2024-02-13 08:42 | disposition home or self-care (01) ==
PROVIDERS: PCP Nurse Practitioner Family; Visit Provider Anesthesiology Pain Medicine
PROC: (CPT 62323; principal; 2024-02-13 08:00)
DX: M54.17 Radiculopathy, lumbosacral region (principal); M96.1 Postlaminectomy syndrome, not elsewhere classified
CPT/HCPCS: 62323; 99199

== ENCOUNTER 2024-04-09 08:15 | Day surgery (SDC) | payer OTHER, SELFPAY ==
[2024-04-05 11:38] VITALS: BMI 24.2
--- NOTE | ~2024-04-09 | XR_ITS ---
EXAMINATION: XR fluoroscopy no charge DATE: 04/09/2024 9:30 TRESTLE BUILDER INDICATION: TRESSA L1,L2,L3 MED BRANCH NERVE BLOCK . TECHNIQUE: 11 fluoroscopic images and 9 cine clips of the lumbar spine were obtained during bilateral L1, L2, L3 medial branch nerve block, performed by Jesus Rubio MD. I was not present during the procedure. Fluoroscopy exposure time was 29.1 seconds. Air Kerma 6.78 mGy. COMPARISON: 02/13/2024 FINDINGS/IMPRESSION: Fluoroscopic documentation of bilateral L1, L2, L3 medial branch nerve block. Please refer to the ope rative note for complete procedural details . Reviewed, dictated and finalized at location K. TLE BUILDER
--- NOTE | 2024-04-09 07:29 | WPDHPUPDATE1 ---
History and Physical Update Update Date/Time: 04/09/24 07:29 History and Physical has been reviewed, including an updated exam of the patient. There are NO changes in the patient's condition. Risks, benefits, and alternatives have been discussed and questions answered. Patient agrees to proceed with procedure.
--- NOTE | 2024-04-09 08:08 | P.OP_ITS ---
Procedure Note - Detailed Date of Procedure 04/09/24 Pre-op Diagnosis lumbosacral spondylosis, chronic low back pain Post-op Diagnosis Same Procedure Performed Diagnostic bilateral Lumbar Medial Branch Blocks at L1, L2, L3 Treating the bilateral L2-3, L3-4 Facet Joints Under Fluoroscopic Guidance and with Contrast Control. ( 4 levels blocked). Surgeon Jesus Rubio MD Fuel Cell Systems Engineer None. Anesthesia Local Description of Procedure INFORMED CONSENT: Risks, benefits and alternatives to the procedure were discussed in detail with the patient who expressed explicit understanding and consent to proceed. Patient was informed verbally and in written form regarding the risks associated with the procedure including the low risk of serious infection, bleeding/bruising, allergic reaction, nerve or organ injury, paralysis, procedural site pain or discomfort, worsening pain and/or mobility, failure to treat and/or disfigurement. The patient expressed explicit understanding and consent to proceed. All materials required for the procedure were available prior to procedure start. Site and side were marked prior to procedure and confirmed in the presence of the patient. PROCEDURE IN DETAIL: The patient was brought to the procedural suite and placed in the prone position. Patient was made comfortable with use of pillows under the head/chest, hips and ankles. Skin overlying the injection site on the affected side(s) was prepared broadly with ChloraPrep applicator and draped in a sterile manner. Aseptic technique was used throughout. The endplates of the vertebral bodies at the site(s) of interest were aligned in the AP view. Ipsilateral oblique angulation was utilized to optimize visualization of the intersection between the superior articulating process and transverse process at each target site. Local anesthesia was established by infiltration with approximately 5 mL of 1% lidocaine via a 1-1/2 inch 27-gauge needle. A 25-gauge 3.5 inch Quincke spinal needle was advanced until the needle tip contacted periosteum at the target site, right L1. Lateral view was utilized to confirm the appropriate placement of the needle tip just anterior to the facet line and superior to the pedicle. In the Lateral view, 0.25 mL of Omnipaque 300 contrast medium was injected after negative aspiration for CSF, blood or other bodily fluid, showing appropriate extra-articular spread of contrast without evidence of intravascular, foraminal or intrathecal placement. A 0.5 mL solution of 0.5% PF bupivacaine was injected after negative repeat aspiration. Appropriate spread of the injectate was confirmed with washout of previously injected contrast. No parasthesias were elicited. Needle was removed completely intact without difficulty. The same exact procedure was repeated for all remaining levels on the ipsilateral side, right L2, L3 medial branches, modified as necessary to accommodate for the new target location with identical findings and results and no evidence of complication. The same exact procedure was repeated for all remaining levels on the contralateral side, left L1, L2, L3 medial branches, modified as necessary to accommodate for the new target location with identical findings and results and no evidence of complication. Images were saved and documented in the patient chart. Patient's skin was cleaned and sterile bandage applied. The patient tolerated the procedure well. The patient was transported to the recovery area in stable condition where they were observed for an appropriate amount of time prior to discharge, without evidence of complication. Patient was instructed on the appropriate completion of a pain diary over the next 12-24 hours. The patient was instructed to avoid excessive activity for the next 48 hours, including climbing and frequent use of stairs. Showers only for 48 hours. They were instructed not to drive or operate heavy machinery for 24 hours. They are to monitor for severe headaches, fevers, chills, night sweats, erythema/swelling at the site or any other signs of infection, bleeding/bruising, bowel or bladder changes as well as new pain, weakness or numbness in the upper or lower extremity. Should they notice these changes, they are instructed to call our office immediately or report directly to the nearest Emergency Department if no answer or if after posted office hours. COMPLICATIONS: None COMMENTS: None CONTRAST WASTED: 28.5mL Omnipaque 300. Complications No immediate complications Condition Stable Disposition Same day [facility] - Charge Forward: Surgery Billing
[2024-04-09 08:54] VITALS: BP 134/83; PULSE 75; RESP 15; TEMP 37.2; O2SAT 99; BMI 23.6
[2024-04-09 09:38] VITALS: BP 145/85; PULSE 69; RESP 15; O2SAT 98
[2024-04-09 09:49] VITALS: BP 155/86; PULSE 72; RESP 16; O2SAT 97
[2024-04-09] MEDS: LIDOCAINE HCL 1% PF INJ 5 ML VIAL 3 ML INFILTRATE (09:50)
[2024-04-09] MEDS: BUPivacaine HCL 0.5% 10 ML AMP INFILTRATE (09:50)
[2024-04-09 09:56] VITALS: BP 158/106; PULSE 75; RESP 18; O2SAT 100
== END 2024-04-09 10:15 | disposition home or self-care (01) ==
LOC: ASC 08:17
PROVIDERS: PCP Nurse Practitioner Family; Visit Provider Anesthesiology Pain Medicine
PROC: (CPT 64493; principal; 2024-04-09 09:30)
DX: M47.817 Spondylosis without myelopathy or radiculopathy, lumbosacral region (principal)
CPT/HCPCS: 64493 ×2; 64494 ×2; 99199

== ENCOUNTER 2024-06-14 12:33 | Outpatient (CLI) | payer OTHER, SELFPAY ==
--- OUTSIDE RECORDS SUMMARY | 2024-06-14 12:36 | XMS_ITS | Clinical Summary ---
Author Organization [facility] Address [address], [place] [address] Phone Care Team Providers Care Veterinary Virus Serum Inspector Name Role Phone Unavailable Primary Care Provider Unavailabl e Social History Tobacco Use Types Packs/Day Years Used Date Smoking Tobacco: Never Assessed Comments Unknown Sex and Gender Information Value Date Recorded Sex Assigned at Not on file Legal Sex Female 12:23 AM CDT Gender Identity Not on file Sexual Orientation Not on file Plan of Treatment Health Maintenance Due Date Last Done Comments DEXA Bone Density 1955 Hepatitis C Virus (HCV) Screening 1955 TdaP Immunization 1957 Pap Smear 1978 Cervical Cancer Screening (CCS) 10/28/1987 HPV/Cotest 10/28/1987 Colonoscopy 2002 Colorectal Cancer Screening 2002 Cologuard 10/28/2007 Immunochemical Fecal Occult Blood 10/28/2007 Mammogram 10/28/2007 Pneumococcal Immunization (5 0+ years) (1 of 1 - PCV) 10/28/2007 Zoster Immunization (1 of 2) 10/28/2007 Influenza Immunization (#1) 2023 SARS-COV-2 Immunization (2023- season) 2023 Respiratory Syncytial Virus (RSV) Immunization (Adult) (1 - 1-dose 75+ series) 2032 Hepatitis B Immunization Aged Out No longer eligible based on patient's age to complete this topic Meningococcal Immunization (ACWY) Aged Out No longer eligible based on patient's age to complete this topic Rotavirus Immunization Aged Out No lo nger eligible based on patient's age to complete this topic
--- OUTSIDE RECORDS SUMMARY | 2024-06-14 12:36 | XMS_ITS | Clinical Summary ---
Author Organization [facility] Address [address] [place] [id number] Care Team Providers Care Pulmonologist/Intensivist Name Role Phone Mario Andrew MD Primary Care Provider Allergies No known active allergies Medications albuterol sulfate HFA 108 (90 Base) MCG/ACT inhaler Inhale 2 puffs into the lungs. Active albuterol sulfate HFA 108 (90 Base) MCG/ACT inhaler INHALE 1 PUFF BY MOUTH EVERY 4 HOURS NEEDED FOR SHORTNESS OF BREATH OR WHEEZING 1 Active FLUoxetine 40 MG capsule Take 80 mg by mouth daily. 1 Active hydroxychloroqu ine 200 MG tablet Active pantoprazole EC 40 MG tablet Take 40 mg by mouth daily. 1 Active gabapentin 300 MG capsule TAKE 1 CAPSULE BY MOUTH IN THE MORNING AND TAKE 3 CAPSULES BY MOUTH AT BEDTIME 1 Active valACYclovir 500 MG tablet 1 Active ibuprofen 200 MG tablet Take 200 mg by mouth. Active Social History Tobacco Use Types Packs/Day Years Used Date Smoking Tobacco: Never Smokeless Tobacco: Never Tobacco Cessation:Counseling Given: No Alcohol Use Standard Drinks/Week Comments Not Currently 0 (1 standard drink = 0.6 oz pur e alcohol) Comments No Sex and Gender Information Value Date Recorded Sex Assigned at Not on file Legal Sex Female 3:10 PM CDT Gender Identity Not on file Sexual Orientation Not on file Last Filed Vital Signs Vital Sign Reading Time Taken Comments Blood Pressure 114/66 11/06/2020 1:47 PM CDT Pulse 70 11/06/2020 1:47 PM CDT Temperature - - Respiratory Rate 18 11/06/2020 1:47 PM CDT Oxygen Saturation 98% 11/06/2020 1:47 PM CDT Inhaled Oxygen Concentration - - Weight 63 kg (139 lb) 11/06/2020 1:47 PM CDT Height - - Body Mass Index - - Plan of Treatment Health Maintenance Due Date Last Done Comments Colorectal Cancer Screening Colonoscopy (10 Years) 1957 DTaP, Tdap and Td Vaccines (1 - Tdap) 1976 Mammogram Screening 1997 Zoster Vaccines (1 of 2) 10/28/2007 Dexa Scan (General) 2022 Pneumococcal Vaccine: 65+ Years (1 of 1 - PCV) 2022 COVID-19 Vaccine (3 - season) 2023 07/25/2020, 07/02/2020 Influenza Adult (#1) 2024 02/21/2018, 02/20/2017, 03/16/2016, Additional history exists RSV Immunization or 60+ Years (1 - 1-dose 75+ series) 2032 Hepatitis C Completed 11/06/2020 Meningococcal B Vaccine Aged Out No l onger eligible based on patient's age to complete this topic Meningococcal Vaccine Aged Out No rodolfo fady eligible based on patient's age to complete this topic RSV Immunizations Under 20 Months Aged Out No longer eligible based on patient's age to complete this topic Insurance [employer] Care Teams Pulmonologist/Intensivist Relationship Specialty Start Date End Date Mario Andrew MD [address] [place] [address] PCP - General FAMILY PRACTICE 09/03/20
[2024-06-14 17:47] LABS: Basophils Absolute Auto 0.1 K/mm3 (0.0-0.1); Basophils Percent Auto 0.8 % (0.2-1.2); Eosinophils Absolute Auto 0.2 K/mm3 (0-0.3); Eosinophils Percent Auto 2.5 % (0-4.4); Hematocrit 37.7 % (37.0-47.0); Hemoglobin 11.7 g/dL (12.0-15.0); Immature Granulocyte Absolute 0.04 K/mm3 (0.00-0.031); Immature Granulocyte Percent A 0.6 % (0-0.5); Lymphocytes Absolute Auto 2.04 K/mm3 (0.9-3.2); Lymphocytes Percent Auto 32.1 % (18.3-44.2); Mean Corpuscular Hemoglobin 29.1 pg (26-34); Mean Corpuscular Volume 93.8 fl (80-100); Mean Platelet Volume 9.8 fl (7.4-10.4); Monocytes Absolute Auto 0.7 K/mm3 (0.1-0.6); Monocytes Percent Auto 10.7 % (2.6-8.5); Neutrophils Absolute Auto 3.4 K/mm3 (1.3-6.7); Neutrophils Percent Auto 53.3 % (45.5-73.1); Platelet Count Result 275 k/mm3 (150-375); Red Blood Count 4.02 M/mm3 (4.2-5.4); Red Cell Distribution Width 13.4 % (11.5-14.5); White Blood Count 6.4 K/mm3 (4.5-10.0)
[2024-06-14 17:55] LABS: Hemoglobin A1C 5.6 % (<5.7)
[2024-06-14 18:00] LABS: Alanine Aminotransferase 20 U/L (6-35); Alkaline Phosphatase 114 U/L (38-126); Anion Gap 10 mmol/L (4-12); Aspartate Amino Transferase 38 U/L (14-36); Bilirubin,Total 0.4 mg/dL (0.2-1.3); Blood Urea Nitrogen 20 mg/dL (7-17); Calcium 8.9 mg/dL (8.4-10.2); Carbon Dioxide 28 mmol/L (22-30); Chloride 100 mmol/L (98-107); Estimated Glomerular Filt Rate > 60; Glucose 76 mg/dL (65-110); Potassium 3.9 mmol/L (3.4-5.0); Sodium 138 mmol/L (137-145)
== END 2024-06-14 12:34 | disposition home or self-care (01) ==
PROVIDERS: PCP Nurse Practitioner Family; Visit Provider Nurse Practitioner Family
DX: E78.5 Hyperlipidemia, unspecified (principal); R73.03 Prediabetes
CPT/HCPCS: 36415; 80053; 83036; 85025

== ENCOUNTER 2024-07-16 08:49 | Day surgery (SDC) | payer OTHER, SELFPAY ==
[2024-06-25 09:49] VITALS: BMI 24.9
--- NOTE | ~2024-07-16 | XR_ITS ---
INTRAOPERATIVE FLUOROSCOPY: CLINICAL HISTORY: 68 years old Female; DIAG/PROG TRESSA L1,L2,L3 MEDIAL BRANCH BLK PROCEDURE COMMENTS: Limited intraoperative fluoroscopy of the lumbar spine was performed. CUMULATIVE DOSE: 3.8 mGy FLUOROSCOPY TIME: 22.8 seconds FINDINGS/IMPRESSION: Please refer to operative note for further details. Reviewed, dictated and finalized at location A.
[2024-07-16 10:15] VITALS: BMI 24.4
[2024-07-16 10:16] VITALS: BP 133/86; PULSE 81; RESP 16; TEMP 36.6; O2SAT 100
--- NOTE | 2024-07-16 10:21 | PM.HPGS ---
History of Present Illness History of Present Illness Consent: Risks, benefits, and alternatives have been discussed and questions answered. Patient agrees to proceed with procedure. Chief complaint: Lumbosacral spondylosis, chronic low back pain Narrative: Pascale Brewster is a 68 year old female with chronic, recalcitrant and disabling bilateral lumbosacral back pain secondary to degenerative spondylosis with failure to respond to aggressive conservative measures including PT, oral and topical analgesics, opioid and nonopioid analgesics, rest, time and activity/behavioral modification over the past 1-2 years who presents for diagnostic/prognostic medial branch blocks of the bilateral L1, L2, L3 medial branches (# 2) addressing the bilateral L2-3-L3-4 facet joints under fluoroscopic guidance and with contrast control. Review of Systems Review of Systems: Patient denies any new infectious, allergic, cardiopulmonary, neurologic or constitutional symptoms or changes in activity tolerance or exercise capacity including new or progressive SOB/SEE, peripheral edema, productive cough, dysuria, nausea/vomiting, diarrhea, weight change, fevers/chills/night sweats, new or progressive neurologic deficit, cognitive or mood changes since last seen, except as documented in the HPI. All systems reviewed & are unremarkable except as noted in HPI and below PMFSH Past Medical History Medical History Lumbosacral spondylosis DDD (degenerative disc disease) Chronic cough Hyperlipidemia Hiatal hernia Rheumatoid arthritis Anxiety Body mass index (BMI) 24.0-24.9, adult (12/28/18) Bursitis of shoulder, right Chest pain at rest Chronic low back pain without sciatica Chronic right shoulder pain Depression Esophageal dysphagia GERD without esophagitis Nontraumatic incomplete tear of right rotator cuff Oral candidiasis Other chronic pain Postmenopausal Recurrent genital herpes Rheumatoid arthritis involving both wrists Surgical History Surgical History History of breast lump removal left breast lump removal p- 1997 History of hysterectomy (~1997) History of lumbosacral spine surgery (~06/2014) L4-S1 laminectomy Family History Family History Sibling Family history of sleep apnea Other Family history of Alzheimer's disease Family history of arthritis Family history of cardiovascular disease Hypertension Social History Social History Social History: , 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 Smoking packs per day: 1 Smoking cigarettes per day: 20.0 Years smoked: 10 Smoking pack-years: 10.00 Smoking status: Former smoker Tobacco type: cigarettes Second hand tobacco smoke exposure: Yes Smoking end date: 05/01/02 Additional smoking assessment comments: smoked 10 years total, 1 ppd Alcohol intake: current Alcohol use details: occassional Substance use: never Substance use type: does not use Do You Feel Safe in your Home?: Yes Lack of Transportation: No Lack of Food: Never True Current Housing: I Have Housing Concerned About Future Housing: No Difficulty Paying Gas/Electric Bills: No Difficulty Paying for Meds: No Currently Unemployed: No Education: High School Diploma/GED Difficulty w/ Childcare or Family Care: No Living arrangements: with family Spiritual care concerns: No Meds Home Medications and Allergies Home Medications ?Medication ?Instructions ?Recorded ?Confirmed ?Type pantoprazole 40 mg tablet,delayed 40 mg PO BID 10/12/21 07/16/24 History release hydroxychloroquine 200 mg tablet 300 mg PO DAILY 08/10/22 07/16/24 History cholecalciferol (vitamin D3) 50 50 mcg PO DAILY 04/18/23 07/16/24 History mcg (2,000 unit) capsule valacyclovir 500 mg tablet 500 mg PO DAILY #90 tabs 02/06/24 07/16/24 Rx fluoxetine 40 mg capsule 80 mg (2 x 40 mg) PO DAILY #180 04/09/24 07/16/24 Rx caps cyclobenzaprine 5 mg tablet See Rx Instructions .Route 05/07/24 07/16/24 Rx .COMPLEX #60 tabs benzonatate 100 mg capsule 100 mg PO TID PRN cough #30 caps 06/18/24 07/16/24 Rx montelukast 10 mg tablet 10 mg PO DAILY #30 tabs 06/18/24 07/16/24 Rx (Singulair) alprazolam 0.5 mg tablet 0.5 mg PO TID PRN anxiety #90 tabs 07/08/24 07/16/24 Rx Allergies Allergy/AdvReac Type Severity Reaction Status Date / Time sertraline AdvReac Intermediate Agitated Verified 07/16/24 10:14 clonazepam AdvReac Mild irritabilit Verified 07/16/24 10:14 y Vital Signs Vital Signs - 24 hr 07/16/24 10:16 Temperature 97.8 F Pulse Rate 81 Respiratory Rate 16 Blood Pressure 133/86 Pulse Oximetry 100 Oxygen Delivery Room Air Exam Narrative: The patient's physical exam is essentially unchanged from prior examination on 05/27/2024. Specifically, patient demonstrates normal lung capacity, tidal volume and respiratory rate without wheezes, crackles, rales or rubs. Heart rate and rhythm are regular without murmurs, gallops or rubs. No JVD. Pulses 2+ globally without increasing peripheral edema. AAOx3 with no evidence of confusion, intoxication or altered mental state, NC/AT without acute distress or altered consciousness. Speech, cognition, mood, insight and judgment at baseline and within normal limits. Assessment and Plan Assessment and plan (1) Dorsalgia: Code(s): M54.9 - Dorsalgia, unspecified Status: Acute (2) Lumbosacral spondylosis: Code(s): M47.817 - Spondylosis without myelopathy or radiculopathy, lumbosacral region Status: Acute (3) Spondylolisthesis at L2-L3 level: Code(s): M43.16 - Spondylolisthesis, lumbar region Status: Acute (4) Chronic pain: Code(s): G89.29 - Other chronic pain Status: Acute Plan Proceed as planned with diagnostic/prognostic medial branch blocks of the bilateral L1, L2, L3 medial branches (# 2) addressing the bilateral L2-3-L3-4 facet joints under fluoroscopic guidance and with contrast control.
--- NOTE | 2024-07-16 10:24 | WPDHPUPDATE1 ---
History and Physical Update Update Date/Time: 07/16/24 10:24 History and Physical has been reviewed, including an updated exam of the patient. There are NO changes in the patient's condition. Risks, benefits, and alternatives have been discussed and questions answered. Patient agrees to proceed with procedure.
--- NOTE | 2024-07-16 10:25 | P.OP_ITS ---
Procedure Note - Detailed Date of Procedure 07/16/24 Pre-op Diagnosis Lumbosacral spondylosis, chronic low back pain Post-op Diagnosis Same Procedure Performed Diagnostic bilateral Lumbar Medial Branch Blocks at L1, L2, L3 Treating the b ilateral L2-3, L3-4 Facet Joints Under Fluoroscopic Guidance and with Contrast Control. (4 levels blocked). Surgeon Jesus Rubio MD Technical Maintenance Specialist None. Anesthesia Local Description of Procedure INFORMED CONSENT: Risks, benefits and alternatives to the procedure were discussed in detail with the patient who expressed explicit understanding and consent to proceed. Patient was informed verbally and in written form regarding the risks associated with the procedure including the low risk of serious infection, bleeding/bruising, allergic reaction, nerve or organ injury, paralysis, procedural site pain or discomfort, worsening pain and/or mobility, failure to treat and/or disfigurement. The patient expressed explicit understanding and consent to proceed. All materials required for the procedure were available prior to procedure start. Site and side were marked prior to procedure and confirmed in the presence of the patient. PROCEDURE IN DETAIL: The patient was brought to the procedural suite and placed in the prone position. Patient was made comfortable with use of pillows under the head/chest, hips and ankles. Skin overlying the injection site on the affected side(s) was prepared broadly with ChloraPrep applicator and draped in a sterile manner. Aseptic technique was used throughout. The endplates of the vertebral bodies at the site(s) of interest were aligned in the AP view. Ipsilateral oblique angulation was utilized to optimize visualization of the intersection between the superior articulating process and transverse process at each target site. Local anesthesia was established by infiltration with approximately 5 mL of 1% lidocaine via a 1-1/2 inch 27-gauge needle. A 25-gauge 3.5 inch Quincke spinal needle was advanced until the needle tip contacted periosteum at the target site, right L1. Lateral view was utilized to confirm the appropriate placement of the needle tip just anterior to the facet line and superior to the pedicle. In the Lateral view, 0.25 mL of Omnipaque 300 contrast medium was injected after negative aspiration for CSF, blood or other bodily fluid, showing appropriate extra-articular spread of contrast without evidence of intravascular, foraminal or intrathecal placement. A 0.5 mL solution of 2.0% PF lidocaine was injected after negative repeat aspiration. Appropriate spread of the injectate was confirmed with washout of previously injected contrast. No parasthesias were elicited. Needle was removed completely intact without difficulty. The same exact procedure was repeated for all remaining levels on the ipsilateral side, right L2, L3 medial branches, modified as necessary to accommodate for the new target location with identical findings and results and no evidence of complication. The same exact procedure was repeated for all remaining levels on the contralateral side, left L1, L2, L3 medial branches, modified as necessary to accommodate for the new target location with identical findings and results and no evidence of complication. Images were saved and documented in the patient chart. Patient's skin was cleaned and sterile bandage applied. The patient tolerated the procedure well. The patient was transported to the recovery area in stable condition where they were observed for an appropriate amount of time prior to discharge, without evidence of complication. Patient was instructed on the appropriate completion of a pain diary over the next 12-24 hours. The patient was instructed to avoid excessive activity for the next 48 hours, including climbing and frequent use of stairs. Showers only for 48 hours. They were instructed not to drive or operate heavy machinery for 24 hours. They are to monitor for severe headaches, fevers, chills, night sweats, erythema/swelling at the site or any other signs of infection, bleeding/ bruising, bowel or bladder changes as well as new pain, weakness or numbness in the upper or lower extremity. Should they notice these changes, they are instructed to call our office immediately or report directly to the nearest Emergency Department if no answer or if after posted office hours. COMPLICATIONS: None COMMENTS: None CONTRAST WASTED: 28.5mL Omnipaque 300. Complications No immediate complications Condition Stable Disposition Same day [facility] Billing Surgery - Charge Forward: Surgery Billing
[2024-07-16 10:49] VITALS: BP 130/82; PULSE 81; RESP 18; O2SAT 97
[2024-07-16 10:54] VITALS: BP 140/80; PULSE 77; RESP 15; O2SAT 97
--- OUTSIDE RECORDS SUMMARY | 2024-07-16 10:57 | XMS_ITS | Clinical Summary ---
Author Organization [facility] Address [address], [place] [address] Phone Care Team Providers Care Ski Patrol Director Name Role Phone Unavailable Primary Care Provider [...]
--- OUTSIDE RECORDS SUMMARY | 2024-07-16 10:57 | XMS_ITS | Clinical Summary ---
Author Organization [facility] Address [address] [place] [id number] Care Team Providers Care Home Health Caregiver Name Role Phone Mario Andrew MD Primary [...] complete this topic Insurance [employer] Care Teams Home Health Caregiver Relationship Specialty Start Date End Date Mario Andrew MD [address] [place] [address] PCP - General FAMILY PRACTICE 09/03/20
[2024-07-16 10:59] VITALS: BP 135/78; PULSE 78; RESP 13; O2SAT 98
[2024-07-16 11:04] VITALS: BP 151/77; PULSE 80; RESP 16; O2SAT 97
[2024-07-16] MEDS: LIDOCAINE 1% PF INJ 5 ML VIAL INFILTRATE (11:04)
[2024-07-16] MEDS: LIDOCAINE 2% PF LOCAL INJ 5 ML VIAL INFILTRATE (11:05)
[2024-07-16] MEDS: LIDOCAINE 1% PF INJ 5 ML VIAL 6 ML INFILTRATE (11:06)
[2024-07-16 11:08] VITALS: BP 133/97; PULSE 83; RESP 15; O2SAT 100
== END 2024-07-16 11:25 | disposition home or self-care (01) ==
PROVIDERS: PCP Nurse Practitioner Family; Visit Provider Anesthesiology Pain Medicine
PROC: (CPT 64493; principal; 2024-07-16 11:00)
DX: M47.817 Spondylosis without myelopathy or radiculopathy, lumbosacral region (principal); G89.29 Other chronic pain
CPT/HCPCS: 64493; 64494 ×2; 64495 ×2; 99199

== ENCOUNTER 2024-07-16 11:29 | Outpatient (CLI) | payer OTHER, SELFPAY ==
--- OUTSIDE RECORDS SUMMARY | 2024-07-16 13:12 | XMS_ITS | Clinical Summary ---
Author Organization [facility] Address [address] [place] [address] Care Team Providers Care Library Technical Assistant Name Role Phone Mario Andrew MD Primary [...] complete this topic Insurance [employer] Care Teams Library Technical Assistant Relationship Specialty Start Date End Date Mario Andrew MD [address] [place] [address] PCP - General FAMILY PRACTICE 09/03/20
--- OUTSIDE RECORDS SUMMARY | 2024-07-16 13:12 | XMS_ITS | Clinical Summary ---
Author Organization [facility] Address [address], [place] [address] Phone Care Team Providers Care Apprentice Cook Name Role Phone Unavailable Primary Care Provider [...]
[2024-07-16 13:55] LABS: Cholesterol 248 mg/dL (0-200); HDL Direct 102 mg/dL
[2024-07-16 13:55] LABS: Free T4 Free Thyroxine 1.11 ng/dL (0.78-2.19)
[2024-07-16 14:07] LABS: LDL Cholesterol Direct 102 mg/dL
[2024-07-16 14:14] LABS: Triglycerides 97 mg/dL (<150)
[2024-07-16 14:30] LABS: Hepatitis C Virus Antibody Reactive (Negative)
== END 2024-07-16 11:30 | disposition home or self-care (01) ==
LOC: ANHGOSHLAB 11:30
PROVIDERS: PCP Nurse Practitioner Family; Visit Provider Nurse Practitioner Family
DX: L65.9 Nonscarring hair loss, unspecified (principal); E55.9 Vitamin D deficiency, unspecified; Z11.59 Encounter for screening for other viral diseases; E78.5 Hyperlipidemia, unspecified
CPT/HCPCS: 36415; 80061; 82306; 84439; 84443; 86803

== ENCOUNTER 2024-07-23 13:43 | Outpatient (CLI) | payer OTHER, SELFPAY ==
--- OUTSIDE RECORDS SUMMARY | 2024-07-23 15:57 | XMS_ITS | Clinical Summary ---
Author Organization [facility] Address [address] [place] [address] Care Team Providers Care Bite Block Maker Name Role Phone Mario Andrew MD Primary [...] complete this topic Insurance [employer] Care Teams Bite Block Maker Relationship Specialty Start Date End Date Mario Andrew MD [address] [place] [address] PCP - General FAMILY PRACTICE 09/03/20
--- OUTSIDE RECORDS SUMMARY | 2024-07-23 15:57 | XMS_ITS | Clinical Summary ---
Author Organization [facility] Address [address], [place] [address] Phone Care Team Providers Care Lockstitch Front Maker Name Role Phone Unavailable Primary Care Provider [...] 10/28/2007 Influenza Immunization (#1) 2023 SARS-COV-2 Immunization ( season) 2023 Respiratory Syncytial Virus (RSV) Immunization [...]
[2024-07-23 21:23] LABS: Hepatitis C Virus Antibody Reactive (Negative)
== END 2024-07-23 13:44 | disposition home or self-care (01) ==
LOC: ANHGOSHLAB 13:44
PROVIDERS: PCP Nurse Practitioner Family; Visit Provider Family Medicine
DX: R76.8 Other specified abnormal immunological findings in serum (principal)
CPT/HCPCS: 36415; 86803; 87522

== ENCOUNTER 2024-09-13 08:00 | Outpatient (CLI) | payer OTHER, SELFPAY ==
--- NOTE | ~2024-09-13 | MR_ITS ---
MRI of the lumbar spine Clinical History: Radiculopathy Technique: Axial T2-weighted images, and sagittal T1-weighted, T2-weighted, and STIR images were acqu ired. Findings: There is posterior fusion from L4 through S1 with bilateral rods and transpedicular screws present. There are disc fusion devices at the L4-L5 and L5-S1 disc spaces. Prior laminectomy defects at L4 and L5 are probably present. At L1-L2, there is mild disc bulge with advanced facet arthropathy. No juanpablo central canal stenosis. There is mild bilateral neural foraminal narrowing. At L2-L3, there is severe degenerative disc thinning with minimal grade 1 retrolisthesis of L2 over L 3. There is severe facet arthropathy with diffuse disc bulge. There is moderate to severe spinal tony l stenosis/thecal sac compression. There is severe bilateral neural foraminal narrowing. L3-L4, there is severe degenerative distended with severe facet arthropathy. There is severe spinal c anal stenosis/thecal sac compression and severe bilateral neural foraminal comprise. At L4-L5, there is no spinal canal stenosis. No definite neural foraminal narrowing. L5-S1, there is no canal stenosis or definite neural foraminal narrowing. Paravertebral soft tissues demonstrate expected postoperative change. Impression: Severe degenerative spondylosis at L2-L3 and L3-L4, as detailed above. Posterior and interbody fusion from L4 through S1. Reviewed, dictated and finalized at [facility]. Impression: Severe degenerative spondylosis at L2-L3 and L3-L4, as detailed above. Posterior and interbody fusion from L4 through S1.
--- NOTE | ~2024-09-13 | XR_ITS ---
3 VIEWS LUMBAR SPINE Ordering provider: Lynda Crawford History: . RADICULOPATHY . Comparison: None. FINDINGS: VERTEBRAL BODIES:Spondylolisthesis seen at the level of L5-S1 with postoperative changes. No visible fracture or subluxation. DISK SPACES: Degenerative disc disease seen at the level of L2-L3, and L3-L4. Disc spacers are seen a t the level of L4-L5 and L5-S1. SOFT TISSUES: Atherosclerotic changes of the aorta. IMPRESSION: No acute osseous abnormality lumbar spine. Postoperative changes in the lower lumbar area. Multilevel degenerative disc disease. Reviewed, dictated and finalized at location A. IMPRESSION: No acute osseous abnormality lumbar spine. Postoperative changes in the lower l umbar area. Multilevel degenerative disc disease.
== END 2024-09-13 08:01 | disposition home or self-care (01) ==
PROVIDERS: PCP Nurse Practitioner Family; Visit Provider Nurse Practitioner Adult Health
DX: M47.27 Other spondylosis with radiculopathy, lumbosacral region (principal)
CPT/HCPCS: 72110; 72148

== ENCOUNTER 2024-10-01 14:59 | Outpatient (CLI) | payer OTHER, SELFPAY ==
--- NOTE | ~2024-10-01 | XR_ITS ---
Lumbosacral Spine: AP and lateral views Clinical History: Spinal stenosis COMPARISON: 09/13/2024 Findings: Stable orthopedic fixation from L4 through S1. Stable probable underlying anterolisthesis o f L5 over S1. Stable grade 1 retrolisthesis of L2 over L3. Severe degenerative tearing at L2-L3 and L 3-L4 is again present. Stable facet arthropathy. Impression: No interval change. Stable posterior and interbody fusion from L4 through S1. There is stable underly ing anterolisthesis of L5 over S1. Stable degenerative spondylosis in the remainder of the lumbar spine with associated grade 1 retrolis thesis of L2 over L3. Reviewed, dictated and finalized at location . Impression: No interval change. Stable posterior and interbody fusion from L4 through S1. T here is stable underlying anterolisthesis of L5 over S1. Stable degenerative spondylosis in the remainder of the lumbar spine with assoc iated grade 1 retrolisthesis of L2 over L3.
--- NOTE | ~2024-10-01 | CT_ITS ---
Noncontrast CT scan of the lumbar spine CLINICAL HISTORY: Spinal stenosis TECHNIQUE: Axial noncontrast imaging of the lumbar spine was performed. Sagittal and coronal reformat andrés images were constructed. Dose reduction technique was used on this scan by utilizing automated ex posure control and iterative reconstruction technique. The dose-length product (DLP) was 390.60 mGy-c m. FINDINGS: There is posterior and interbody fusion from L4 through S1, bilateral rods and transpedicul ar screws present. There are disc fusion cages at the L4-L5 and L5-S1 disc spaces. There is 3 mm retr olisthesis of L2 over L3. No acute fracture evident. At L1-L2, there is no significant disc bulge or herniation. No spinal canal stenosis or neural forami nal narrowing evident. At L2-L3, there is severe degenerative disc narrowing. There is moderate to advanced facet arthropath y. There is mild disc bulge with moderate severe spinal canal stenosis/thecal sac compression. There is severe bilateral neural foraminal narrowing. At L3-L4, there is severe degenerative disc narrowing. There is advanced facet arthropathy which cont inues to moderate to possibly severe spinal canal stenosis. There is severe bilateral neural foramina l narrowing. At L4-L5, there is no definite canal stenosis. There is probable moderate bilateral neural foraminal narrowing. At L5-S1, there is no definite canal stenosis. There is probable moderate to advanced left neural for aminal narrowing. Right neural foramen but are preserved. Paravertebral soft tissues are unremarkable. Impression: Postoperative change from L4 through S1, as detailed above. Severe degenerative spondylosis at L2-L3 and L3-L4. Mild to moderate degenerative spondylosis at L4-L5 and L5-S1, as above. 3 mm retrolisthesis of L2 over L3. Reviewed, dictated and finalized at location . Impression: Postoperative change from L4 through S1, as detailed above. Severe degenerative spondylosis at L2-L3 and L3-L4. Mild to moderate degenerative spondylosis at L4-L5 and L5-S1, as above. 3 mm retrolisthesis of L2 over L3.
== END 2024-10-01 15:00 | disposition home or self-care (01) ==
LOC: MICIMG 15:00
PROVIDERS: PCP Nurse Practitioner Family; Visit Provider Nurse Practitioner Adult Health
DX: M48.061 Spinal stenosis, lumbar region without neurogenic claudication (principal); M47.896 Other spondylosis, lumbar region
CPT/HCPCS: 72110; 72131

== ENCOUNTER 2024-11-07 14:05 | Outpatient (CLI) | payer OTHER, SELFPAY ==
--- NOTE | ~2024-11-07 | XR_ITS ---
Exam: XR scoliosis survey - 11/07/2024 14:11 CDT History: 69 years old Female with M47.817 - Spondylosis without myelopathy or radiculopathy... Comparison: None available. Technique: Standing AP view(s) of the entire spine Findings: There is a thoracic scoliosis with a rightward curvature of 17 degrees, with its apex at T8. There is a lumbar scoliosis with a leftward curvature with its apex at L2. Robert angle of the lumbar spine co uld not be measured because of the artifact caused by the posterior spinal fusion hardware. Multilevel degenerative changes are seen. Grade 1 anterolisthesis of L5 on S1, likely degenerative. P osterior spinal fusion hardware from L4 to S1. Intact hardware and no loosening. No associated vertebral abnormalities are noted. Bone mineralization is age appropriate. There is no evidence for focal bone destruction, acute fracture or subluxation. There is no abnormal kyphosis or lordosis. Impression: Scoliosis, as above. Reviewed, dictated and finalized at location A. Impression: Scoliosis, as above.
== END 2024-11-07 14:06 | disposition home or self-care (01) ==
LOC: MICIMG 14:06
PROVIDERS: PCP Nurse Practitioner Family; Visit Provider Neurological Surgery
DX: M47.817 Spondylosis without myelopathy or radiculopathy, lumbosacral region (principal); M41.9 Scoliosis, unspecified
CPT/HCPCS: 72082

== ENCOUNTER 2024-11-30 07:28 | Outpatient (CLI) | payer OTHER, SELFPAY ==
--- NOTE | ~2024-11-30 | CT_ITS ---
EXAMINATION: [id number] DATE: 11/30/2024 07:56 INDICATION: Postlaminectomy syndrome TECHNIQUE: Computed tomography (CT) of the lumbar spine was performed without intravenous contrast. A utomated exposure control and iterative reconstruction technique were employed. The dose-length produ ct was 261.38 mGy-cm. COMPARISON: 10/01/2024 FINDINGS: Transitional L1 segment with diffuse lateral transverse process apophyseal centers approximating hypo plastic riblets. 6 degrees lumbar levocurvature curvature. Old fracture at S1 which is healed with mi ld anterior angulation. 3 mm retrolisthesis L2 on L3. L4-S1 instrumented anterior and posterior spina l fusion with interbody bone graft cages at both disc spaces and bilateral vertical rosemary with pedicle screws at each of these levels. Unfused vertebral body heights are normal. Severe disc height loss wi th prominent degenerative endplate changes at L2-L3 and L3-L4. Moderate disc height loss at T10-T11. Mild to moderate bilateral sacroiliac osteoarthritis. Likely bone graft harvest site at the left post erior iliac spine. Paravertebral soft tissues are unremarkable. The following disc levels are specifi ashtyn discussed: T11-T12: The disc does not extend beyond the endplate margin. There is mild right and moderate to sev ere left facet joint osteoarthritis. There is mild left neural foraminal stenosis. There is no centra l canal stenosis. T12-L1: The disc does not extend beyond the endplate margin. There is mild right and moderate left fa cet joint osteoarthritis. There is no neural foraminal stenosis. There is no central canal stenosis. L1-L2: Disc is bulging. There is mild right and severe left facet joint osteoarthritis. There is mild bilateral neural foraminal stenosis. There is mild central canal stenosis. L2-L3: The disc does not extend beyond the more posterior L2 inferior endplate. There is moderate rig ht and severe left facet joint osteoarthritis. There is moderate bilateral neural foraminal stenosis. There is moderate central canal stenosis. L3-L4: Posterior spinal fusion with dense metallic streak artifact from the posterior instrumentation which obscures the margins of the disc and osseous structures within the central canal. There is sev ere bilateral facet osteoarthritis. There is at least mild stenosis of the osseous central canal. The re is moderate right and at least mild to moderate left neural foraminal stenosis. L4-L5: There is both anterior and posterior spinal fusion. Likely associated bilateral posterior deco mpression with bilateral partial facetectomies abscess or laminotomies although assessment is limited by the streak artifact. There is no stenosis of the osseous central canal or neural foramina althoug h assessment for narrowing resulting from soft tissue density is limited by the streak artifact. L5-S1: There is both anterior and posterior spinal fusion. As at L4-L5 there appears to be prior post erior decompression with resection of portions of the facets and lamina, again with limited visualiza tion due to streak artifact. Possible mild residual narrowing at the left neural foramina. No osseous narrowing of the right neural foraminal or central canal. IMPRESSION: 1. Old healed fracture deformity at S1. No acute osseous adenopathy. 2. Severe cervical spondylosis with instrumented L4-S1 anterior and posterior spinal fusion. Reviewed, dictated and finalized at location A. IMPRESSION: 1. Old healed fracture deformity at S1. No acute osseous adenopathy. 2. Severe cervical spondylosis with instrumented L4-S1 anterior and posterior s justine fusion.
--- OUTSIDE RECORDS SUMMARY | 2024-11-30 07:37 | XMS_ITS | Clinical Summary ---
Author Organization [facility] Address [address], [place] [address] Phone Care Team Providers Care Case Supervisor Name Role Phone Unavailable Primary Care Provider Unavailabl e Social History Tobacco Use Types Packs/Day Years Used Date Smoking Tobacco: Never Assessed Comments Unknown Sex and Gender Information Value Date Recorded Sex Assigned at Not on file Legal Sex Female 12:23 AM CDT Gender Identity Not on file Sexual Orientation Not on file Plan of Treatment Health Maintenance Due Date Last Done Comments Hepatitis C Virus (HCV) Screening 1955 TdaP Immunization 1955 Cologuard 2002 Colonoscopy 2002 Colorectal Cancer Screening 2002 Immunochemical Fecal Occult Blood 2002 Pneumococcal Immunization (5 0+ years) (1 of 1 - PCV) 10/28/2007 Zoster Immunization (1 of 2) 10/28/2007 SARS-COV-2 Immunization (1 - 2023- season) 2023 Influenza Immunization (#1) 2024 Respiratory Syncytial Virus (RSV) Immunization (Adult) (1 - 1-dose 75+ series) 2032 Hepatitis B Immunization Aged Out No longer eligible based on patient's age to complete this topic Human Papillomavirus (HPV) Immunization Aged Out No longer eligible b ased on patient's age to complete this topic Meningococcal Immunization (ACWY) Aged Out No longer eligible based on patient's age to complete this topic Rotavirus Immunization Aged Out No lo nger eligible based on patient's age to complete this topic
--- OUTSIDE RECORDS SUMMARY | 2024-11-30 07:37 | XMS_ITS | Clinical Summary ---
Author Organization [facility] Address [address] [place] [address] Care Team Providers Care Presser And Blocker Knitted Goods Name Role Phone Mario Andrew MD Primary [...] Years) 1955 DTaP, Tdap and Td Vaccines ( 1 - Tdap) 1976 Mammogram Screening 1997 Pneumococcal Vaccine: 50+ Years (1 of 1 - PCV) 10/28/2007 Zoster Vaccines (1 of 2) 10/28/2007 Dexa Scan (General) 2022 COVID-19 Vaccine (3 - 2023-2 5 season) 2023 07/25/2020, 07/02/2020 RSV Immunization or 60+ Years (1 - 1-dose 75+ series) 2032 Hepatitis C Completed 11/06/2020 Meningococcal B Vaccine Aged Out No l onger eligible based on patient's age to complete this topic Meningococcal Vaccine Aged Out No rodolfo fady eligible based on patient's age to complete this topic RSV Immunizations Under 20 Months Aged Out No longer eligible b ased on patient's age to complete this topic Insurance [employer] Care Teams Presser And Blocker Knitted Goods Relationship Specialty Start Date End Date Mario Andrew MD [address] [place] [address] PCP - General FAMILY PRACTICE 09/03/20
== END 2024-11-30 07:29 | disposition home or self-care (01) ==
PROVIDERS: PCP Nurse Practitioner Family; Visit Provider Neurological Surgery
DX: M47.817 Spondylosis without myelopathy or radiculopathy, lumbosacral region (principal); M96.1 Postlaminectomy syndrome, not elsewhere classified; Z98.1 Arthrodesis status; Z87.81 Personal history of (healed) traumatic fracture
CPT/HCPCS: 72131

== ENCOUNTER 2025-03-14 11:49 | Outpatient (CLI) | payer OTHER, SELFPAY ==
--- NOTE | 2025-03-14 13:01 | ECG_ITS ---
Test Date: 2025-03-14 13:18:53 Measurements Intervals [place] Rate: 74 P: 61 DE: 153 QRS: 23 QRSD: 97 T: 27 QT: 411 QTc: 458 Interpretive Statements SINUS RHYTHM POSSIBLE LEFT ATRIAL ENLARGEMENT [-0.1mV P WAVE IN V1/V2] LOW QRS VOLTAGE IN PRECORDIAL LEADS [QRS DEFLECTION < 1.0 mV IN CHEST LEADS] INCOMPLETE RIGHT BUNDLE BRANCH BLOCK [90+ ms QRS DURATION, TERMINAL R IN V1/V2, 40+ ms S IN I/aVL/V4/V5/V6] ABNORMAL ECG No previous ECG available for comparison Electronically Signed On 03-14-2025 13:29:52 [employer] by Francisco Hunt M.D.
[2025-03-14 13:52] LABS: Hematocrit 36.0 % (37.0-47.0); Hemoglobin 11.3 g/dL (12.0-15.0); Mean Corpuscular HGB Conc 31.4 g/dl (32-36); Mean Corpuscular Hemoglobin 29.7 pg (26-34); Mean Corpuscular Volume 94.5 fl (80-100); Platelet Count Result 298 k/mm3 (150-375); Red Blood Count 3.81 M/mm3 (4.2-5.4); White Blood Count 7.4 K/mm3 (4.5-10.0)
[2025-03-14 14:03] LABS: Anion Gap 9 mmol/L (4-12); Blood Urea Nitrogen 11 mg/dL (7-17); Calcium 8.8 mg/dL (8.4-10.2); Carbon Dioxide 28 mmol/L (22-30); Chloride 100 mmol/L (98-107); Estimated Glomerular Filt Rate > 60; Glucose 80 mg/dL (65-110); Potassium 3.6 mmol/L (3.4-5.0); Sodium 137 mmol/L (137-145)
[2025-03-14 14:06] LABS: INR 1.0; Partial Thromboplastin Time 27.9 Seconds (22.3-36.8); Prothrombin Time 12.9 Seconds (11.1-14.7)
[2025-03-14 14:16] LABS: Add Urine Microscopic? YES; Appearance Urine Clear (Clear); Glucose Urine UA Negative (Negative); Leukocyte Esterase Ur Negative LEU/UL (Negative); Nitrate Urine Negative (Negative); Non Pathogenic Casts 0-2; Specific Grav Ur 1.020 (1.001-1.035)
== END 2025-03-14 11:50 | disposition home or self-care (01) ==
LOC: ANHSURGERY 11:54
PROVIDERS: PCP Nurse Practitioner Family; Visit Provider Neurological Surgery
DX: M47.817 Spondylosis without myelopathy or radiculopathy, lumbosacral region (principal); Z01.818 Encounter for other preprocedural examination; I45.10 Unspecified right bundle-branch block
CPT/HCPCS: 36415; 80048; 81001; 85027; 85610; 85730; 93005

== ENCOUNTER 2025-04-04 13:52 | Day surgery (SDC) | payer OTHER, SELFPAY ==
--- NOTE | 2025-03-14 11:51 | PC.NURSE ---
[facility] has started construction of its new state of the art ER which will open Spring 2026. With this, we anticipate parking may be a challenge for some our surgical patients and families. Parking spaces are limited but are available for all Surgical, obstetrics, and ER patients sharing this lot. If you arrive and find you are having a hard time finding a parking space, please note that we understand the challenges, please drive around the hospital and park near Hospital Entrance 1. When you enter this entrance, you can ask a volunteer to direct or take you back to the surgical waiting area to check in. We appreciate everyone?s understanding of these expected challenges while we build for your future. Report to the Outpatient Waiting Room, entrance under the green pavilion located off [address], at time _6 AM on date __04/04/25 . Planned Procedure Time: _7:30 AM .? Time changes happen often and if your time is changed the preop area will call you the afternoon before. - You and your visitor will be asked to self-screen and do not enter if you have any COVID symptoms. Please call surgeon if you need to reschedule. - A mask is optional within the hospital at this time. Patients may have clear liquids (water, carbonated beverages, clear teas, apple juice) until 3 hours prior to surgery ( 4:30 AM) with a maximum of 20 ounces. - No food from midnight until time of surgery and no smoking, or chewing tobacco (or any form of nicotine). No chewing gum, candy or mints. Take only the following medications with a SIP of water on the morning of surgery: _ALPRAZOLAM IF NEEDED DO NOT STOP ANY OF YOUR OTHER PRESCRIPTION MEDICATIONS PRIOR TO SURGERY EXCEPT THE FOLLOWING Hold all vitamins and supplements for 3 days per anesthesiologist.LAST DOSE 03/31/25 Medications to discontinue per physician _PATIENT STATES HOLD ASPIRIN 7 DAYS PRE OP PER DR PHAN, HOLD_IBUPROFEN AND EXCEDRINE 7 DAYS PRE OP PER DR PHAN LAST DOSE 03/27/25 Please no make-up, nail paraguayan, hairspray, perfume, deodorant, or body powder the day of surgery.? No jewelry (including any body piercings) or valuables the day of surgery, leave them at home.? Please take a shower or bath the night before, or the morning of, surgery with an antibacterial soap.? Wear comfortable, loose fitting clothing.? Children are encouraged to wear pajamas. - Jewelry must be removed prior to entering the operating room.? Rings and piercings that are not removed may be cut off. - The hospital will not accept responsibility for valuables.? - Please leave all valuables, including medications, at home the day of surgery. If you are going home after surgery, a licensed p d driver must drive you home.? - NO public transportation without another adult if you receive anesthesia. - We recommend that an adult stay with you for 24 hours following discharge. - We also recommend that you do not drive, make important decision, drink alcoholic beverages, or take any drugs that were not prescribed by your health care provider for at least 24 hours after your discharge time. For Pediatric surgeries, we recommend two adults accompany the child home. Follow any additional instructions given to you from your surgeon. VERBAL AND WRITTEN instructions given to _PATIENT and asked if any additional questions and then verbalized understanding. Patient advised to call surgeon office or pre surgery nurse liaison [phone] if any additional questions.
[2025-03-14 11:58] VITALS: BMI 23.0
[2025-03-14 12:47] VITALS: BP 148/83; PULSE 77; RESP 18; TEMP 37.1; O2SAT 99
[2025-04-04] VITALS (17 sets, daily range): BP systolic 91–146; BP diastolic 55–83; PULSE 63–103; RESP 13–18; TEMP 35.6–36.8; O2SAT 94–100
--- NOTE | ~2025-04-04 | XR_ITS ---
EXAMINATON: XR fluoroscopy no charge Indication:laminectomy/foraminotomy L3-4 with fusion TECHNIQUE: Fluoroscopy used during laminectomy/foraminotomy L3-4 with fusion performed by [Bruce Novoa MD] on 04/04/2025. 3 fluoroscopic images captured. FINDINGS: Correlate with procedure note. IMPRESSION: Fluoroscopy used during laminectomy/foraminotomy L3-4 with fusion. Reviewed, dictated and finalized at location A. 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
[2025-04-04] MEDS: LACTATED RINGERS 1,000 ML 30 ML IV CONT ×2 (06:35→11:30)
--- NOTE | 2025-04-04 06:46 | WPDANESEPPF ---
Anes - Initial Pre Proc Eval Procedure: Operation Date: 04/04/25 07:30 Proposed Procedures p Stereotactic Computer Assisted L2-3 Lumbar Laminectomy/Foraminotomy, L3-4 Posterior Lumbar Interbody Fusion, Possible Removal of Implants - Bruce Novoa MD Date/Time: 04/04/25 06:46 Surgeon: Bruce Novoa MD Pre Op Diagnosis: lumbosacral spondylosis Patient Data Age: 69 Gender: F Height: 1.6 m Weight: 58.9 kg Last Vital Signs Temp 37.1 C 03/14/25 12:47 Pulse 77 03/14/25 12:47 Resp 18 03/14/25 12:47 BP 148/83 H 03/14/25 12:47 Pulse Ox 99 03/14/25 12:47 O2 Del Method Room Air 03/14/25 12:47 Allergies Allergy/AdvReac Type Severity Reaction Status Date / Time sertraline AdvReac Intermediate Agitated Verified 03/14/25 12:02 clonazepam AdvReac Mild irritabilit Verified 03/14/25 12:02 y venlafaxine (From Effexor) AdvReac Unknown Agitated Verified 03/14/25 12:02 Home Medications ?Medication ?Instructions ?Recorded ?Confirmed ?Type hydroxychloroquine 200 mg tablet 200 mg PO DAILY 08/10/22 03/14/25 History cholecalciferol (vitamin D3) 50 50 mcg PO DAILY 04/18/23 03/14/25 History mcg (2,000 unit) capsule alprazolam 0.5 mg tablet 0.5 mg PO TID PRN anxiety #90 tabs 12/11/24 03/14/25 Rx benzonatate 100 mg capsule 100 mg PO TID PRN cough #30 caps 12/11/24 03/14/25 Rx cyclobenzaprine 5 mg tablet 5 mg PO Q8H PRN muscle spasm #90 12/11/24 03/14/25 Rx tabs duloxetine 30 mg capsule,delayed 30 mg PO DAILY #90 caps 12/11/24 03/14/25 Rx release fluoxetine 40 mg capsule 80 mg (2 x 40 mg) PO DAILY #180 12/11/24 03/14/25 Rx caps pantoprazole 40 mg tablet,delayed 40 mg PO BID #180 tabs 12/11/24 03/14/25 Rx release L. acidophilus 5 mg-digestive 1 cap PO DAILY 03/14/25 03/14/25 History enzymes combo no.5 250 mg capsule (Probiotic-Digestive Enzymes) aspirin 325 mg capsule 650 mg PO PRN 03/14/25 03/14/25 History svryzfd-piicyxsqmpdpr-cevhhqto 250 1 tablet PO Q6H PRN pain 03/14/25 03/14/25 History mg-250 mg-65 mg tablet (Extra Pain Relief) biotin 10,000 mcg chewable tablet 1 mcg PO DAILY 03/14/25 03/14/25 History (Hair, Skin and Nails (biotin)) docusate sodium 100 mg capsule 300 mg PO EVERY OTHER DAY 03/14/25 03/14/25 History (Colace) ibuprofen 200 mg tablet (Advil) 400 mg PO PRN 03/14/25 03/14/25 History vitamin B complex 1 cap PO DAILY 03/14/25 03/14/25 History valacyclovir 500 mg tablet See Rx Instructions .Route 03/24/25 Rx .COMPLEX #90 tabs Patient hx anesthesia problems: none Family hx anesthesia problems: none Results Review: All pre-operative results and documents have been reviewed as part of the pre-operative evaluation. 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 Oral candidiasis Other chronic pain Postmenopausal Recurrent genital herpes Rheumatoid arthritis involving both wrists Surgical History Surgical History History of breast lump removal left breast lump removal p- 1997 History of hysterectomy (~1997) History of lumbosacral spine surgery (~06/2014) L4-S1 laminectomy Family History Family History Sibling Family history of sleep apnea Other Family history of Alzheimer's disease Family history of arthritis Family history of cardiovascular disease Hypertension Social History Social History Social History: , 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 Years smoked: 10 Smoking status: Former smoker Tobacco type: cigarettes Second hand tobacco smoke exposure: Yes Smoking end date: 05/01/02 Additional smoking assessment comments: smoked 10 years total, 1 ppd Alcohol intake: current Alcohol use details: occassional Substance use: never Substance use type: does not use Lack of Transportation: No Lack of Food: Never True Current Housing: I Have Housing Concerned About Future Housing: No Difficulty Paying Gas/Electric Bills: No Difficulty Paying for Meds: No Currently Unemployed: No Education: High School Diploma/GED Difficulty w/ Childcare or Family Care: No Living arrangements: with family Spiritual care concerns: No Anes - Eval Final PreProcedure Day of Procedure 04/04/25 06:46 Patient weight: normal Heart: regular rate and rhythm Lungs: clear to auscultation Airway: Mallampati scale class II Neurological: alert and oriented Last oral intake: >/= 8 hours ASA classification: III Emergent: no Anesthetic plan: proceed Anesthesia type and monitoring: general ETT and standard monitoring Results Review: All pre-operative results and documents have been reviewed as part of the pre-operative evaluation. Informed Consent: The patient's anesthetic plan and its attendant risks and benefits were discussed with the patient/family/POA. Questions were solicited and answers provided to the satisfaction of the patient/family/POA.
--- NOTE | 2025-04-04 07:05 | PM.IMHP2 ---
H&P: HPI History of Present Illness Date/Time: 04/04/25 07:05 Chief Complaint: This is a 68-year-old female with progressive symptoms of back pain spinal stenosis and degenerative disc disease secondary to adjacent segment disease in the setting of prior L4-S1 fusion. She is now here for an L@/3 lumbar laminectomy/foraminotomy, L3-4 PLIF, possible removal of implants at L4-S1. [facility] Past Medical History Medical History Lumbosacral spondylosis DDD (degenerative disc disease) Chronic cough Hyperlipidemia Hiatal hernia Rheumatoid arthritis Anxiety Body mass index (BMI) 24.0-24.9, adult (12/28/18) Bursitis of shoulder, right Chest pain at rest Chronic low back pain without sciatica Chronic right shoulder pain Depression Esophageal dysphagia GERD without esophagitis Nontraumatic incomplete tear of right rotator cuff Oral candidiasis Other chronic pain Postmenopausal Recurrent genital herpes Rheumatoid arthritis involving both wrists Surgical History Surgical History History of breast lump removal left breast lump removal p- 1997 History of hysterectomy (~1997) History of lumbosacral spine surgery (~06/2014) L4-S1 laminectomy Family History Family History Sibling Family history of sleep apnea Other Family history of Alzheimer's disease Family history of arthritis Family history of cardiovascular disease Hypertension Social History Social History Social History: , works FT in [employer] office as a in[employer]. Years smoked: 10 Smoking status: Former smoker Tobacco type: cigarettes Second hand tobacco smoke exposure: Yes Smoking end date: 05/01/02 Additional smoking assessment comments: smoked 10 years total, 1 ppd Alcohol intake: current Alcohol use details: occassional Substance use: never Substance use type: does not use Lack of Transportation: No Lack of Food: Never True Current Housing: I Have Housing Concerned About Future Housing: No Difficulty Paying Gas/Electric Bills: No Difficulty Paying for Meds: No Currently Unemployed: No Education: High School Diploma/GED Difficulty w/ Childcare or Family Care: No Living arrangements: with family Spiritual care concerns: No Meds Home Medications and Allergies Home Medications ?Medication ?Instructions ?Recorded ?Confirmed ?Type hydroxychloroquine 200 mg tablet 200 mg PO DAILY 08/10/22 04/04/25 History cholecalciferol (vitamin D3) 50 50 mcg PO DAILY 04/18/23 04/04/25 History mcg (2,000 unit) capsule alprazolam 0.5 mg tablet 0.5 mg PO TID PRN anxiety #90 tabs 12/11/24 03/14/25 Rx cyclobenzaprine 5 mg tablet 5 mg PO Q8H PRN muscle spasm #90 12/11/24 03/14/25 Rx tabs fluoxetine 40 mg capsule 80 mg (2 x 40 mg) PO DAILY #180 12/11/24 04/04/25 Rx caps pantoprazole 40 mg tablet,delayed 40 mg PO BID #180 tabs 12/11/24 04/04/25 Rx release L. acidophilus 5 mg-digestive 1 cap PO DAILY 03/14/25 04/04/25 History enzymes combo no.5 250 mg capsule (Probiotic-Digestive Enzymes) aspirin 325 mg capsule 650 mg PO PRN 03/14/25 03/14/25 History wkckblw-epirmmutjpono-ojohnkop 250 1 tablet PO Q6H PRN pain 03/14/25 03/14/25 History mg-250 mg-65 mg tablet (Extra Pain Relief) biotin 10,000 mcg chewable tablet 1 mcg PO DAILY 03/14/25 04/04/25 History (Hair, Skin and Nails (biotin)) docusate sodium 100 mg capsule 300 mg PO EVERY OTHER DAY 03/14/25 03/14/25 History (Colace) ibuprofen 200 mg tablet (Advil) 400 mg PO PRN 03/14/25 04/04/25 History vitamin B complex 1 cap PO DAILY 03/14/25 04/04/25 History valacyclovir 500 mg tablet See Rx Instructions .Route 03/24/25 04/04/25 Rx .COMPLEX #90 tabs Allergies Allergy/AdvReac Type Severity Reaction Status Date / Time sertraline AdvReac Intermediate Agitated Verified 04/04/25 06:59 clonazepam AdvReac Mild irritabilit Verified 04/04/25 06:59 y venlafaxine (From Effexor) AdvReac Unknown Agitated Verified 04/04/25 06:59 Vital Signs Vital Signs - 24 hr 04/04/25 07:02 Temperature 98.3 F Pulse Rate 84 Respiratory Rate 18 Blood Pressure 146/75 H Pulse Oximetry 100 Oxygen Delivery Room Air Exam Narrative: awake alert moves all extremities well without focal deficit Assessment and Plan Assessment and plan (1) Lumbosacral spondylosis: Code(s): M47.817 - Spondylosis without myelopathy or radiculopathy, lumbosacral region Status: Acute Assessment and Plan: This is a 68-year-old female with progressive symptoms of back pain spinal stenosis and degenerative disc disease secondary to adjacent segment disease in the setting of prior L4-S1 fusion. She is now here for an L2/3 lumbar laminectomy/foraminotomy, L3-4 PLIF, possible removal of implants at L4-S1.
--- NOTE | 2025-04-04 07:14 | WPDHPUPDATE1 ---
History and Physical Update Update Date/Time: 04/04/25 07:14 History and Physical has been reviewed, including an updated exam of the patient. There are NO changes in the patient's condition. Risks, benefits, and alternatives have been discussed and questions answered. Patient agrees to proceed with procedure.
[2025-04-04] MEDS: ceFAZolin 2 GM in SODIUM CHLORIDE 0.9% IV 50 ML 100 ML IVPB (07:22)
[2025-04-04] MEDS: BUPIVACAINE/EPINEPHRINE 0.5% 50 ML VIAL 30 ML INFILTRATE (08:08)
--- NOTE | 2025-04-04 11:26 | W.PM.PROC2 ---
Procedure Note - Detailed Date of Procedure 04/04/25 Pre-op Diagnosis lumbosacral spondylosis Post-op Diagnosis Same Procedure Performed L2-3 bilateral laminectomy and bilateral medial facetectomy L3-4 posterior lumbar interbody fusion L3-4 bilateral facetectomy L3-4 bilateral laminectomy Arthrodesis at L3-4 bilaterally Instrumented fusion from L3-L5 on the right and L3-4 on the left Surgeon Bruce Novoa MD Anesthesia General Indications Lumbar spondylosis spinal stenosis Findings Severe lumbar spinal stenosis at L3-4 moderate to severe L2-3 Description of Procedure Once intubated the patient was positioned prone onto the open Arnel frame. All bony prominences were padded. Lateral fluoroscopy was brought in to confer rostral extent of my incision. Patient was then prepped and draped in the usual sterile fashion. I opened the incision from L2 down to L5. Then used Bovie electrocautery to obtain hemostasis and open fascia and dissect the fascia a subperiosteal plane off the lamina of L2-L2 and L3. I then worked laterally over the screws at L3-L4 and L5 and expose this bilaterally. I was not able to connect onto the L 4 5 segment on the right side therefore I connected onto the right L5-S1 segment. On the left side it was able to connect at L4-5. This was locked into place. I then proceeded with placement of the 70 navigation arc on the spinous process of L2. Navigation was set up and confirmed with accuracy. I then moved on to placement of pedicle screws at the L3 pedicle bilaterally. This was done in standard fashion with navigation. The pedicle was tapped with a pedicle finer expanded tap. At each point the hole was palpated with a ball-tip probe and identified no medial or lateral breach breaches. Once the screws were in place the navigation was then removed and I proceeded with the posterior lumbar interbody fusion portion of the case. I used a high-speed bur to drill trough laminectomies across the lamina of L3 as well as resecting the pars with the drill. The medial facet was removed bilaterally. I then used a [place] to find the foramina at L3-4 bilaterally using Nuzhat Pino I was able to remove all of the bone in between the pedicles and within the foramen at L3-4 bilaterally. The nerve exiting was noted to be free bilaterally. I then prepared for the interbody portion of the case. I used a retractor to have my kennel assistant hold back thecal sac. I opened the annulus of the disc space on the right-sided L3-4. Using a variety of Karlene I removed the a and additional disc material. I then used a variety of curettes to clean out the entirety of the disc space from the right side. At this point the disc was free from disc material. I then brought in lateral fluoroscopy and placed the 10 mm trial into the disc space under fluoroscopic guidance. This was confirmed to be in good position we then opened a 10 x 26 x 7 degree CoreLink F 3D cage and packed this with bone. A trial was then removed and the cages mallet it in under fluoroscopic guidance. It seems to be in good position was very securely and the disc space without any motion. The superintendent generating plant was then removed. The wound was copiously irrigated. Hemostasis was obtained. I then moved onto the L2-3 laminectomy and bilateral medial facetectomy I already had the dura exposed at L3 and therefore moved upwards with Nuzhat Pino. I 1st removed the spinous process at L2-3 and much of the lamina with a rongeur. Using Kerrison I then widened the laminectomy to the level of the medial pedicle at L2-3. The thecal sac appeared decompressed. The wound was again copiously irrigated hemostasis was obtained and then I moved on to the arthrodesis portion of the case. I decorticated the transverse processes at L3 and L4 bilaterally and placed magnetos along the lateral gutters as long as well as morselized autograft. I then placed a connector on the left side to line up with the connector that I had previously placed in between the L4-5 segment. A 50 mm rosemary was then placed and set screws were placed to final tighten on this side. On the right side to place a 70 mm rosemary into the pedicle screw of L3 and into the connector at L5-S1 and the set screws were final tightened. At this point I placed a subfascial drain that was tunneled out through a separate incision. Drain was then placed into the resection cavity. The wound was copiously irrigated and hemostasis was again obtained. Final x-rays were obtained to indicate correct placement of implants. The wound was then closed in layers. Patient was then flipped supine and turned over Anesthesia for extubation. There were no complications. Estimated Blood Loss 200 Drains Yes Complications No immediate complications Disposition PACU [facility] Billing Surgery - Charge Forward: Surgery Billing
[2025-04-04] MEDS: fentaNYL CITRATE INJ (*CRX) 100 MCG/2 ML VIAL 25 MCG IV PUSH ×8 (11:50→13:09)
[2025-04-04] MEDS: HYDROmorphone HCL INJ (*CRX) 1 MG/ML SYR 0.25 MG IV PUSH ×2 (13:16→13:24)
--- NOTE | 2025-04-04 13:57 | ADMGEN ---
This patient, Pascale Brewster, was admitted to 3 [facility] Surg Room 302-01. Patient/family oriented to hospital policies and general routines including ID bracelet, bed and alarms, visiting hours, pain management, procedures, bathroom and other care routines, personal items, smoking policy, room service/diet, and visiting hours. Information on how to activate the Rapid Response Team has been discussed. Patient/Family are encouraged to report perceived risks to care and to ask questions if they do not understand what they are told or what they should do.
[2025-04-04] MEDS: ONDANSETRON INJ 4 MG/2 ML VIAL IV PUSH (14:54)
[2025-04-04] MEDS: ceFAZolin 1 GM in SODIUM CHLORIDE 0.9% IV 50 ML 100 ML IVPB ×2 (16:30→23:43)
[2025-04-04] MEDS: PANTOPRAZOLE 40 MG TABLET PO (16:30)
[2025-04-04] MEDS: HYDROcodone/acetaminophen (*CRX) 10-325 MG TABLET 1 TAB PO ×2 (17:06→22:20)
[2025-04-04] MEDS: MORPHINE SULFATE (*CRX) 4 MG/ML INJ 2 MG IV PUSH (21:24)
[2025-04-04] MEDS: DOCUSATE SODIUM 100 MG CAPSULE PO (21:25)
[2025-04-04] MEDS: ALPRAZolam (*CRX) 0.5 MG TABLET PO (21:47)
--- NOTE | 2025-04-04 22:29 | PC.NURSE ---
2123 Pt given IV morphine for back pain rated at a 10/10, after administering pain medication through IV , Patient questioned why medication have not taken effect, this nurse educated pt on IV and PO dosage, route and onset. Pt stated that pain was increasing. This nurse called the neuro surgery exchange line, awaiting on return call. Pain reassessed at 2223 and pain stated that pain level was above a 10. PRN hydrocodone given at this time. Pt positioned to left side with call light in reach. Lights dimed, will continue to monitor through out shift.
[2025-04-04] MEDS: CYCLOBENZAPRINE HCL 10 MG TABLET PO (23:53)
[2025-04-05 00:52] VITALS: BP 110/50; PULSE 76; RESP 16; TEMP 36.3; O2SAT 99
[2025-04-05 04:52] VITALS: BP 103/58; PULSE 88; RESP 16; TEMP 36.2; O2SAT 100
[2025-04-05] MEDS: HYDROcodone/acetaminophen (*CRX) 10-325 MG TABLET 1 TAB PO ×5 (05:19→22:00)
[2025-04-05] MEDS: CHOLECALCIFEROL (VITAMIN D3) 25 MCG (1,000 UNITS) TABLET 50 MCG PO (08:04)
[2025-04-05] MEDS: ONDANSETRON INJ 4 MG/2 ML VIAL IV PUSH (08:04)
[2025-04-05] MEDS: HYDROXYCHLOROQUINE SULFATE 200 MG TABLET PO (08:05)
[2025-04-05] MEDS: VITAMIN B COMPLEX CAPSULE 1 CAP PO (08:05)
[2025-04-05] MEDS: DOCUSATE SODIUM 100 MG CAPSULE PO ×2 (08:05→20:09)
[2025-04-05] MEDS: PANTOPRAZOLE 40 MG TABLET PO ×2 (08:05→16:29)
[2025-04-05] MEDS: ceFAZolin 1 GM in SODIUM CHLORIDE 0.9% IV 50 ML 100 ML IVPB ×2 (08:06→16:30)
[2025-04-05] MEDS: CYCLOBENZAPRINE HCL 10 MG TABLET PO ×3 (08:06→22:00)
[2025-04-05 08:34] VITALS: BP 98/52; PULSE 83; RESP 20; TEMP 36.8; O2SAT 99
--- NOTE | 2025-04-05 10:16 | WPDNEUROSGPN ---
Progress Note: A&P Assessment and Plan (1) Lumbosacral spondylosis: Code(s): M47.817 - Spondylosis without myelopathy or radiculopathy, lumbosacral region Status: Acute Assessment and Plan: Patient is doing well overall. She will receive her pain medication today We will d/c valenzuela catheter today. D/C lumbar hemovac drain. Anticipate mobilization today with PT/OT Likely D/C tomorrow vs Monday if persistent pain Will continue to monitor blood pressure Time Spent With Patient Time with patient: 15 - 25 minutes Subjective Date/time seen: 04/05/25 10:16 Interval history: patient with back pain overnight. pain medication originally held this am due to marginally low blood pressure. Patient up in chair, not light headed. Denies radiating lower extremity pain Exam Narrative: Awake, alert oriented x 3 Speech CF MICHELLE EOMI Face= TML MAEW with good strength Objective Data Vital Signs Vital Signs: Vital Signs - 24 hr 04/04/25 11:30 04/04/25 11:45 04/04/25 12:00 Temperature Pulse Rate 84 103 H 100 Respiratory Rate 13 16 16 Blood Pressure 92/55 L 101/77 116/71 Pulse Oximetry 100 100 99 Oxygen Delivery Simple Face Mask Simple Face Mask Oxygen Flow Rate 8 8 04/04/25 12:15 04/04/25 12:30 04/04/25 12:45 Temperature Pulse Rate 95 92 93 Respiratory Rate 14 14 14 Blood Pressure 128/69 113/72 101/63 Pulse Oximetry 94 94 94 Oxygen Delivery Room Air Room Air Room Air Oxygen Flow Rate 04/04/25 13:00 04/04/25 13:15 04/04/25 13:30 Temperature Pulse Rate 98 86 88 Respiratory Rate 14 14 14 Blood Pressure 91/61 L 104/67 105/61 Pulse Oximetry 96 98 98 Oxygen Delivery Nasal Cannula Nasal Cannula Nasal Cannula Oxygen Flow Rate 2 2 2 04/04/25 13:45 04/04/25 14:22 04/04/25 14:34 Temperature 36.4 C Pulse Rate 88 83 Respiratory Rate 14 16 Blood Pressure 101/64 107/65 Pulse Oximetry 98 100 Oxygen Delivery Nasal Cannula Room Air Oxygen Flow Rate 2 04/04/25 15:22 04/04/25 15:52 04/04/25 15:53 Temperature 36.5 C 35.6 C L Pulse Rate 98 63 Respiratory Rate 18 Blood Pressure 112/83 112/66 Pulse Oximetry 100 97 97 Oxygen Delivery Room Air Oxygen Flow Rate 04/04/25 16:52 04/04/25 20:52 04/05/25 00:52 Temperature 35.9 C L 36.4 C 36.3 C L Pulse Rate 72 79 76 Respiratory Rate 16 18 16 Blood Pressure 108/66 111/65 110/50 L Pulse Oximetry 100 99 99 Oxygen Delivery Oxygen Flow Rate 04/05/25 04:52 04/05/25 08:34 04/05/25 08:57 Temperature 36.2 C L 36.8 C Pulse Rate 88 83 Respiratory Rate 16 20 Blood Pressure 103/58 L 98/52 L Pulse Oximetry 100 99 Oxygen Delivery Room Air Oxygen Flow Rate Intake/Output Intake/Output: Intake & Output 04/02/25 04/03/25 04/04/25 04/05/25 23:59 23:59 23:59 23:59 Intake Total 370 720 Output Total 530 815 Balance -160 -95 Meds/Results Medications: Active Medications Generic Name Dose Route Start Last Admin Trade Name Freq PRN Reason Stop Dose Admin Acetaminophen 650 mg 04/04/25 13:52 Acetaminophen 325 Mg Tablet PO Q6H PRN Mild Pain (1-3) Hydrocodone Bitart/Acetaminophen 1 tab 04/04/25 13:52 04/05/25 09:50 Hydrocodone/Acetaminophen (*Crx) 10-325 Mg Tablet PO 1 tab Q4H PRN Administration Moderate Pain (4-6) Al Hydrox/Mg Hydrox/Simethicone 20 ml 04/04/25 13:52 Mag Hydrox/Al Hydrox/Simeth 30 Ml Udc PO Q4H PRN Indigestion/Heartburn Alprazolam 0.5 mg 04/04/25 13:52 04/04/25 21:47 Alprazolam (*Crx) 0.5 Mg Tablet PO 0.5 mg TID PRN Administration Anxiety Bisacodyl 10 mg 04/04/25 13:52 Bisacodyl 10 Mg Suppository RECTAL DAILY PRN Constipation Cyclobenzaprine HCl 10 mg 04/04/25 13:52 04/05/25 08:06 Cyclobenzaprine Hcl 10 Mg Tablet PO 10 mg TID PRN Administration Muscle Spasms Docusate Sodium 100 mg 04/04/25 21:00 04/05/25 08:05 Docusate Sodium 100 Mg Capsule PO 100 mg Q12HR ISLVIA Administration Fluoxetine HCl 80 mg 04/04/25 21:00 04/04/25 21:25 Fluoxetine Hcl 20 Mg Capsule PO 80 mg HS SILVIA Administration Hydroxychloroquine Sulfate 200 mg 04/05/25 09:00 04/05/25 08:05 Hydroxychloroquine Sulfate 200 Mg Tablet PO 200 mg DAILY SILVIA Administration Cefazolin Sodium 1 gm/ Sodium 50 mls @ 100 mls/hr 04/04/25 16:00 04/05/25 08:06 Chloride IVPB 100 mls/hr Q8H SILVIA Administration Morphine Sulfate 2 mg 04/04/25 13:52 04/04/25 21:24 Morphine Sulfate (*Crx) 4 Mg/Ml Inj IV PUSH 2 mg Q2H PRN Administration Pain Rated 7-10 Ondansetron HCl 4 mg 04/04/25 13:52 04/05/25 08:04 Ondansetron Inj 4 Mg/2 Ml Vial IV PUSH 4 mg Q8H PRN Administration Nausea And Vomiting Pantoprazole Sodium 40 mg 04/04/25 17:00 04/05/25 08:05 Pantoprazole 40 Mg Tablet PO 40 mg BID SILVIA Administration Senna/Docusate Sodium 1 tab 04/04/25 13:52 Senna/Docusate Sodium Tablet PO HS PRN Constipation Vitamin B Complex 1 cap 04/05/25 09:00 04/05/25 08:05 Vitamin B Complex Capsule PO 1 cap DAILY SILVIA Administration Vitamin D 50 mcg 04/05/25 09:00 04/05/25 08:04 Cholecalciferol (Vitamin D3) 25 Mcg (1,000 Units) Tablet PO 50 mcg DAILY SILVIA Administration Radiology Results: ITS Impressions Fluoroscopy 04/04/25 13:13 IMPRESSION: Fluoroscopy used during laminectomy/foraminotomy L3-4 with fusion.
[2025-04-05 12:52] VITALS: BP 98/50; PULSE 81; RESP 16; TEMP 36.8; O2SAT 100
[2025-04-05 16:52] VITALS: BP 116/62; PULSE 98; RESP 18; TEMP 37.8; O2SAT 100
[2025-04-05] MEDS: ALPRAZolam (*CRX) 0.5 MG TABLET PO (20:09)
[2025-04-05 21:57] VITALS: BP 91/52; PULSE 85; RESP 14; TEMP 36.8; O2SAT 96
[2025-04-06] MEDS: ceFAZolin 1 GM in SODIUM CHLORIDE 0.9% IV 50 ML 100 ML IVPB ×2 (00:28→08:18)
[2025-04-06 00:36] VITALS: BP 101/48; PULSE 88; RESP 14; TEMP 36.7; O2SAT 96
[2025-04-06] MEDS: HYDROcodone/acetaminophen (*CRX) 10-325 MG TABLET 1 TAB PO ×5 (01:57→23:25)
[2025-04-06 06:26] VITALS: BP 104/62; PULSE 77; RESP 16; TEMP 36.5; O2SAT 94
[2025-04-06] MEDS: DOCUSATE SODIUM 100 MG CAPSULE PO ×2 (08:18→20:49)
[2025-04-06] MEDS: VITAMIN B COMPLEX CAPSULE 1 CAP PO (08:18)
[2025-04-06] MEDS: CHOLECALCIFEROL (VITAMIN D3) 25 MCG (1,000 UNITS) TABLET 50 MCG PO (08:18)
[2025-04-06] MEDS: HYDROXYCHLOROQUINE SULFATE 200 MG TABLET PO (08:18)
[2025-04-06] MEDS: PANTOPRAZOLE 40 MG TABLET PO ×2 (08:18→17:18)
[2025-04-06 08:20] VITALS: PULSE 97; O2SAT 97
[2025-04-06] MEDS: ONDANSETRON INJ 4 MG/2 ML VIAL IV PUSH (09:13)
[2025-04-06 14:00] VITALS: BP 110/54; PULSE 78; RESP 22; TEMP 36.7; O2SAT 99
[2025-04-06] MEDS: CYCLOBENZAPRINE HCL 10 MG TABLET PO ×2 (14:52→20:49)
[2025-04-06] MEDS: ALPRAZolam (*CRX) 0.5 MG TABLET PO (20:49)
[2025-04-06 21:27] VITALS: BP 95/81; PULSE 89; RESP 16; TEMP 37; O2SAT 100
[2025-04-07 05:26] VITALS: BP 105/50; PULSE 80; RESP 14; TEMP 36.8; O2SAT 96
[2025-04-07 08:17] LABS: Hematocrit 26.9 % (37.0-47.0); Hemoglobin 8.5 g/dL (12.0-15.0); Immature Granulocyte Percent A 1.8 % (0-0.5); Lymphocytes Absolute Auto 1.97 K/mm3 (0.9-3.2); Mean Corpuscular HGB Conc 31.6 g/dl (32-36); Mean Corpuscular Hemoglobin 29.4 pg (26-34); Mean Corpuscular Volume 93.1 fl (80-100); Nucleated Red Blood Cells Absolute Auto 0.000 K/mm3 (0.0-0.012); Nucleated Red Blood Cells Perc 0.0 % (0.0-0.2); Platelet Count Result 217 k/mm3 (150-375); Red Blood Count 2.89 M/mm3 (4.2-5.4); White Blood Count 12.9 K/mm3 (4.5-10.0)
[2025-04-07] MEDS: CYCLOBENZAPRINE HCL 10 MG TABLET PO ×2 (08:21→13:29)
[2025-04-07] MEDS: HYDROcodone/acetaminophen (*CRX) 10-325 MG TABLET 1 TAB PO ×2 (08:21→13:29)
[2025-04-07 08:40] LABS: Alanine Aminotransferase 23 U/L (6-35); Albumin Level 3.4 g/dL (3.5-5.1); Alkaline Phosphatase 81 U/L (38-126); Anion Gap 3 mmol/L (4-12); Aspartate Amino Transferase 39 U/L (14-36); Bilirubin,Total 0.6 mg/dL (0.2-1.3); Blood Urea Nitrogen 9 mg/dL (7-17); Calcium 8.3 mg/dL (8.4-10.2); Carbon Dioxide 31 mmol/L (22-30); Chloride 98 mmol/L (98-107); Estimated CRCL calculation 67 ml/min; Estimated Glomerular Filt Rate > 60; Glucose 106 mg/dL (65-110); Potassium 2.9 mmol/L (3.4-5.0); Sodium 132 mmol/L (137-145); Total Protein 6.5 g/dL (6.3-8.2)
[2025-04-07] MEDS: HYDROXYCHLOROQUINE SULFATE 200 MG TABLET PO (09:06)
[2025-04-07] MEDS: VITAMIN B COMPLEX CAPSULE 1 CAP PO (09:06)
[2025-04-07] MEDS: CHOLECALCIFEROL (VITAMIN D3) 25 MCG (1,000 UNITS) TABLET 50 MCG PO (09:06)
[2025-04-07] MEDS: PANTOPRAZOLE 40 MG TABLET PO (09:06)
[2025-04-07] MEDS: DOCUSATE SODIUM 100 MG CAPSULE PO (09:06)
--- NOTE | 2025-04-07 13:47 | WPDNEUROSGPN ---
Progress Note: A&P Assessment and Plan (1) Spinal stenosis, lumbar region without neurogenic claudication: Code(s): M48.061 - Spinal stenosis, lumbar region without neurogenic claudication Status: Acute Plan POD 3 S/P PSF L3-L5, decomp L2-L4 Doing well Okay for discharge home Counseled on spine precautions Subjective Date/time seen: 04/07/25 13:47 Interval history: Pod 3 s/p PSF L3-L5, decomp L2-L4 with Novoa Pain better controlled today Drain and valenzuela already out Wants to go home Exam Narrative: A&O x 3 Speech clear, cranial nerves intact 5/5 motor strength BLE SILT Objective Data Vital Signs Vital Signs: Vital Signs - 24 hr 04/06/25 14:00 04/06/25 20:00 04/06/25 21:27 Temperature 98.1 F 98.6 F Pulse Rate 78 89 Respiratory Rate 22 H 16 Blood Pressure 110/54 L 95/81 L Pulse Oximetry 99 100 Oxygen Delivery Room Air 04/07/25 05:26 04/07/25 09:06 Temperature 98.3 F Pulse Rate 80 Respiratory Rate 14 Blood Pressure 105/50 L Pulse Oximetry 96 Oxygen Delivery Room Air Intake/Output Intake/Output: Intake & Output 04/04/25 04/05/25 04/06/25 04/07/25 23:59 23:59 23:59 23:59 Intake Total 370 1710 590 780 Output Total 530 835 Balance -160 875 590 780 Meds/Results Medications: Active Medications Generic Name Dose Route Start Last Admin Trade Name Freq PRN Reason Stop Dose Admin Acetaminophen 650 mg 04/04/25 13:52 Acetaminophen 325 Mg Tablet PO Q6H PRN Mild Pain (1-3) Hydrocodone Bitart/Acetaminophen 1 tab 04/04/25 13:52 04/07/25 13:29 Hydrocodone/Acetaminophen (*Crx) 10-325 Mg Tablet PO 1 tab Q4H PRN Administration Moderate Pain (4-6) Al Hydrox/Mg Hydrox/Simethicone 20 ml 04/04/25 13:52 Mag Hydrox/Al Hydrox/Simeth 30 Ml Udc PO Q4H PRN Indigestion/Heartburn Alprazolam 0.5 mg 04/04/25 13:52 04/06/25 20:49 Alprazolam (*Crx) 0.5 Mg Tablet PO 0.5 mg TID PRN Administration Anxiety Bisacodyl 10 mg 04/04/25 13:52 Bisacodyl 10 Mg Suppository RECTAL DAILY PRN Constipation Cyclobenzaprine HCl 10 mg 04/04/25 13:52 04/07/25 13:29 Cyclobenzaprine Hcl 10 Mg Tablet PO 10 mg TID PRN Administration Muscle Spasms Docusate Sodium 100 mg 04/04/25 21:00 04/07/25 09:06 Docusate Sodium 100 Mg Capsule PO 100 mg Q12HR SILVIA Administration Fluoxetine HCl 80 mg 04/04/25 21:00 04/06/25 20:48 Fluoxetine Hcl 20 Mg Capsule PO 80 mg HS SILVIA Administration Hydroxychloroquine Sulfate 200 mg 04/05/25 09:00 04/07/25 09:06 Hydroxychloroquine Sulfate 200 Mg Tablet PO 200 mg DAILY SILVIA Administration Morphine Sulfate 2 mg 04/04/25 13:52 04/04/25 21:24 Morphine Sulfate (*Crx) 4 Mg/Ml Inj IV PUSH 2 mg Q2H PRN Administration Pain Rated 7-10 Ondansetron HCl 4 mg 04/04/25 13:52 04/06/25 09:13 Ondansetron Inj 4 Mg/2 Ml Vial IV PUSH 4 mg Q8H PRN Administration Nausea And Vomiting Pantoprazole Sodium 40 mg 04/04/25 17:00 04/07/25 09:06 Pantoprazole 40 Mg Tablet PO 40 mg BID SILVIA Administration Senna/Docusate Sodium 1 tab 04/04/25 13:52 Senna/Docusate Sodium Tablet PO HS PRN Constipation Vitamin B Complex 1 cap 04/05/25 09:00 04/07/25 09:06 Vitamin B Complex Capsule PO 1 cap DAILY SILVIA Administration Vitamin D 50 mcg 04/05/25 09:00 04/07/25 09:06 Cholecalciferol (Vitamin D3) 25 Mcg (1,000 Units) Tablet PO 50 mcg DAILY SILVIA Administration Radiology Results: ITS Impressions Fluoroscopy 04/04/25 13:13 IMPRESSION: Fluoroscopy used during laminectomy/foraminotomy L3-4 with fusion. Labs Labs: Laboratory Results - last 24 hr 04/07/25 04/07/25 08:09 08:10 WBC 12.9 H RBC 2.89 L Hgb 8.5 L Hct 26.9 L MCV 93.1 MCH 29.4 MCHC 31.6 L RDW 13.1 Plt Count 217 MPV 9.1 Immature Gran % (Auto) 1.8 H Neut % (Auto) 70.4 Lymph % (Auto) 15.3 L [place] % (Auto) 11.3 H Eos % (Auto) 0.9 Baso % (Auto) 0.3 Lymph # (Auto) 1.97 [place] # (Auto) 1.5 H Eos # (Auto) 0.1 Baso # (Auto) 0.0 Abs Immat Gran (auto) 0.23 H Absolute Neuts (auto) 9.1 H Absolute Nucleated RBC 0.000 Nucleated RBC % 0.0 Sodium 132 L Potassium 2.9 L Chloride 98 Carbon Dioxide 31 H Anion Gap 3 L BUN 9 Creatinine 0.57 L Estim Creat Clear Calc 67 Estimated GFR > 60 Glucose 106 Calcium 8.3 L Total Bilirubin 0.6 AST 39 H ALT 23 Alkaline Phosphatase 81 Total Protein 6.5 Albumin 3.4 L
== END 2025-04-07 12:53 | disposition home or self-care (01) ==
LOC: ANH3MEDSUR 14:27 → ANHSURGERY 04-08 08:22
PROVIDERS: PCP Nurse Practitioner Family; Visit Provider Neurological Surgery
PROC: (CPT 22612; principal; 2025-04-04 07:30)
DX: M47.817 Spondylosis without myelopathy or radiculopathy, lumbosacral region (principal); M48.061 Spinal stenosis, lumbar region without neurogenic claudication; Z87.891 Personal history of nicotine dependence
CPT/HCPCS: 22630; 22853; 20936; 22842; 63047; 36415; 80053; 85025; 86850; 86900; 86901; 97116; 97162; 97166; 97530; 97535; 99199; J0690; A9270; C1713; J1100; J1171; J2003; J2250; J2270; J2371; J2405; J2704; J3010; J7030; J7120